=== PATIENT | female | born 1945 | race Caucasian/White ===

== ENCOUNTER 2025-08-14 13:41 | Inpatient (IN) | payer MEDICARE, SELFPAY ==
--- OUTSIDE RECORDS SUMMARY | 2025-08-13 10:15 | XMS_ITS | Encounter Summary ---
Author Organization [facility] Address [address] [place] [address] Care Team Providers Care Front Office Agent Name Role Phone Jorge Vazquez MD Primary Care Provider [phone] Jorge Vazquez MD Unavailable Jorge Vazquez MD Unavailable Reason for Referral * Consult / Treatment (Urgent) - New Request Specialty Diagnoses / Procedures Referred By Jessica t Referred To Contact Domingo Abdullahi MD [address] [place] [id number] Phone: tel: fax: Referral ID Status Reason Start Date Expiration Date V isits Requested Visits Authorized [id number] New Request 08/13/2025 11/06/2026 1 1 Reason for Visit * Reason Comments Altered Mental Status Encounter Details Date Type Department Care Team (Late st Contact Info) Description 08/13/2025 10:15 AM EST - 08/14/2025 11:30 AM EST [facility] [address] [place] [address] Domingo Abdullahi MD [address] [place] [address] Sincere Antonio MD [address] [place] [address] Zoie Walters MD [address] [place] [address] Dementia with behavioral disturbance (CMS-HCC) (Primary Dx); Transient alteration of awareness; Dementia without behavioral disturbance (CMS-HCC) [F03.90] Discharge Disposition: Psychiatric Hospital Social History Tobacco Use Types Packs/Day Years Used Date Smoking Tobacco: Never Assessed Humiliation, Afraid, Rape, and Kick questionnair e Answer Date Recorded Within the last year, have y ou been afraid of your partner or ex-partner? No 08/13/2025 Emotionally Abused Not on file 08/13/2025 Physically Abused Not on file 08/13/2025 Sexually Abused Not on file 08/13/2025 Overall Financial Resource Strain (CARDIA) Answe r Date Recorded How hard is it for you to pa y for the very basics like food, housing, medical care, and heating? Not hard at all 08/13/2025 Hunger Vital Sign Answer Date Recorded Within the past 12 months, y ou worried that your food would run out before you got the money to buy more. Never true 08/13/20 25 Ran Out of Food in the Last Year Not on file 08/13/2025 PRAPARE - Transportation Answer Date Re corded In the past 12 months, has l ack of transportation kept you from medical appointments or from getting medications? No 12/2024 In the past 12 months, has l ack of transportation kept you from meetings, work, or from getting things needed for daily living? No 08/13/2025 Housing Stability Vital Sign Answer Tanvir e Recorded In the last 12 months, was t here a time when you were not able to pay the mortgage or rent on time? No 08/13/2025 Number of Times Moved in the Last Year Not on fi le 08/13/2025 At any time in the past 12 m [facility], were you homeless or living in a [facility] (including now)? No 08/13/2025 [facility] Utilities Answer Date Recorded In the past 12 months has th e electric, gas, oil, or water company threatened to shut off services in your home? No 08/13/2025 Food Insecurity Answer Date Recorded Within the past 12 months, y ou worried that your food would run out before you got the money to buy more. Never true 08/13/20 25 Ran Out of Food in the Last Year Not on file 08/13/2025 Intimate Partner Violence Answer Date R ecorded Emotionally Abused Not on file 08/13/2025 Within the last year, have y ou been afraid of your partner or ex-partner? No 08/13/2025 Physically Abused Not on file 08/13/2025 Sexually Abused Not on file 08/13/2025 Housing Stability Answer Date Recorded Unstable Housing in the Last Year Not on file 08/13/2025 In the last 12 months, was t here a time when you were not able to pay the mortgage or rent on time? No 08/13/2025 [address] of Places Lived in the Last Year Not on f ile 08/13/2025 AUDIT C Answer Date Recorded How often have you had a dri nk containing alcohol, in the past year? 0 08/13/2025 How many standard drinks con taining alcohol have you had on a typical day when you are drinking, in the past year? 0 1 10/13/2024 How often have you had six o r more drinks on one occasion, in the past year? 0 08/13/2025 Comments Unknown Sex and Gender Information Value Date Recorded Sex Assigned at Female 02/12/2021 3:05 PM EDT Legal Sex Female 12:02 AM EDT Gender Identity Female 02/12/2021 3:05 PM EDT Sexual Orientation Not on file documented as of this encounter Last Filed Vital Signs Vital Sign Reading Time Taken Comments Blood Pressure 145/85 08/14/2025 6:19 AM EST Pulse 85 08/14/2025 6:19 AM EST Temperature 36.2 C (97.2 F) 08/14/2025 6:19 AM EST Respiratory Rate 16 08/14/2025 6:19 AM EST Oxygen Saturation 92% 08/14/2025 6:19 AM EST Inhaled Oxygen Concentration - - Weight 46.7 kg (103 lb) 08/13/2025 12:49 PM EST Height 152.4 cm (5') 08/13/2025 12:49 PM EST Body Mass Index 20.12 08/13/2025 12:49 PM EST documented in this encounter Discharge Instructions * Discharge Instructions* Domingo Abdullahi MD - 08/13/2025 1:48 PM EST 1. Alexandra was seen and evaluated in the emergency department today when she became unresponsive andnonverbal. 2. In the emergency department, she was evaluated for a number of potential dangerous causes. Her evaluation included CT scans of her head/brain, as well as blood work, chest x-ray, EKG, urine testing. 3. Overall, there is no evidence of an immediately dangerous life-threatening cause for the episodetoday. 4. Specifically, no evidence of any stroke, no bleeding of the brain, no bruising or swelling of the brain. We do not identify any infection, particularly a urinary infection which could account for her mental status change. There is no evidence of heart attack, no pneumonia. 5. At this time, there does not appear to be a clear definitive medical explanation for the episodetoday. 6. For those undergoing significant life changes, such as moving from one apartment to another, superimposed on cognitive impairment from dementia, symptoms of paranoia, speech loss, confusion and disorientation can occur. It is likely this is what happened this morning. 7. I placed an order for an outpatient follow-up with neurology to further discuss and assess treating dementia. 8. You should receive a phone call in the next 24 to 48 hours about setting up an outpatient appointment/consultation. 9. Please contact the primary care doctor and let them know about the visit to the emergency department. Please arrange for outpatient follow-up and reevaluation. 10. We are always here in the emergency department to help. Please return at anytime for any new, different, dangerous, life-threatening, symptoms or conditions. Thank you. * Attachments The following attachments cannot be sent through Care Everywhere. * Altered Level of Consciousness (LOC) (Trinidadian) documented in this encounter Medications at Time of Discharge aspirin 81 MG EC tablet Take by mouth. 09/23/2006 cholecalciferol (VITAMIN D3) 1,000 unit tablet Take by mouth. 05/07/2008 cyanocobalamin, vitamin B-12, 1,000 mcg TbER Take 1 mg by mouth. 11/07/2019 famotidine (PEPCID) 20 MG tablet 04/28/2021 metFORMIN (GLUCOPHAGE) 500 MG tablet TAKE 2 TABLETS BY MOUTH TWICE A DAY WITH MEALS 04/14/2021 simvastatin (ZOCOR) 10 MG tablet TAKE 1 TABLET BY MOUTH EVERY DAY IN THE EVENING FOR CHOLESTEROL 04/29/2021 VESICARE 10 mg tablet 05/26/2021 documented as of this encounter Progress Notes * Sandy Goss - 08/14/2025 7:59 AM EST Behavioral Health Crisis Consult- Contact Note Patient: Alexandra Styles : 1945 Admit Date: 08/13/2025 Date of Consult: 08/14/2025 Time of Consult: 7:59 AM Narrative: Patient: Alexandra Styles Accepting Facility: [facility] Facility Address: [address] [place] [address] Accepting MD: Dr Solomon Arrival Time: 1 PM arrival Nurse to Nurse Report: they will call ED for RN to RN Other Labs or Needs: none HCP/Guardian (if applicable): none invoked in chart Reason for Section 12: altered mental status Information Given To: secure chat * Sandy Goss - 08/14/2025 6:13 AM EST Behavioral Health Crisis Consult- Contact Note Patient: Alexandra Styles : 1945 Admit Date: 08/13/2025 Date of Consult: 08/14/2025 Time of Consult: 6:13 AM Narrative: Bed Search Inpatient Unit Referral Date Referral Time Began Review Date Began Review Time Accepted Date Accepted Time Decline Date Decline Time Reason If Decline Comment Senior Adult Unit at [facility] ([facility]) 08/13/25 6:43 PM EST [facility] 08/13/25 7:06 PM EST [facility] ([facility]) 08/13/25 7:06 PM EST [facility] Accessible 08/13/25 7:06 PM EST [facility] 08/13/25 7:06 PM EST Facility 08/13/25 7:06 PM EST [facility] 08/13/25 7:06 PM EST [facility]) Accessible 08/13/25 7:06 PM EST [facility] Accessible 08/13/25 7:06 PM EST [facility] 08/13/25 7:07 PM EST [facility] Accessible 08/14/25 6:10 AM EST [facility] 08/14/25 6:13 AM EST [facility] Accessible 08/14/25 6:13 AM EST * Juanjose Robertson - 08/13/2025 7:07 PM EST Bed Search Inpatient Unit Referral Date Referral Time Began Review Date Began Review Time Accepted Date Accepted Time Decline Date Decline Time Reason If Decline Comment [facility] at [facility] ([facility]) 08/13/25 6:43 PM EST [facility] 08/13/25 7:06 PM EST [facility] ([facility]) 08/13/25 7:06 PM EST [facility] Access[facility] 08/13/25 7:06 PM EST [facility] 08/13/25 7:06 PM EST Facility 08/13/25 7:06 PM EST [facility] 08/13/25 7:06 PM EST [facility] ([facility]) Accessible 08/13/25 7:06 PM EST [facility] Accessible 08/13/25 7:06 PM EST [facility] 08/13/25 7:07 PM EST * CUCA Cohn - 08/13/2025 6:31 PM EST Delicia notified * Judy May NP - 08/13/2025 3:46 PM EST Psychiatry acknowledges non-urgent psychiatry consult on Alexandra Styles by medical team (Domingo Abdullahi MD) for purposes of reviewing case and ongoing treatment to provide recommendations for agitation. I personally reviewed relevant portions of the patient's chart including but not limited to: medical course (admission note, progress notes, consultation notes), VS, labs, imaging results and MAR summary. After review of chart and discussion w/ team by phone: -Seroquel 25 mg QHS (for agitation/paranoia) -Seroquel 25 mg BID PRN for agitation -Haldol 2.5 mg IV PRN for severe agitation Discussed recommendations with team by phone. I did not personally evaluate the patient but was available to the primary team to assist in the care of the patient including medical consultative discussion and review, and provided recommendations as above. documented in this encounter Consult Notes * CUCA Cohn - 08/13/2025 6:18 PM ESTAssociated Order(s): BEHAVIORAL HEALTH CRISIS EVALUATION Behavioral Health Crisis Consult - Initial Assessment Patient: Alexandra Styles : 1945 Admit Date: 08/13/2025 Date of Consult: 08/13/2025 Time of Consult: 6:28 PM Consult Requested by: Sincere Antonio MD Reason for Consult: Reason for Consult: altered mental status Chief Complaint Patient presents with Altered Mental Status History of Present Illness: Patient is a 80 y.o. female with past medical and psychiatric history as listed who presented to the hospital on 08/13/2025 for Altered Mental Status. Behavioral Health is consulted for altered mental status. The patient reported that she came to the hospital because she believed people were trying to take her grandchildren away from their parents. During the assessment, the patient was observed with her hands covering her face. When asked why, she stated that she was hiding from ???the bad people?? who she feared might take her or her family away. The patient was unable to answer most assessment questions, and her family provided collateral information to assist with the evaluation. Medical History: has a past medical history of Anxiety, Cataract, Diabetes mellitus, Diverticulitis, GERD (gastroesophageal reflux disease), Osteoporosis, and Short-term memory loss. has a past surgical history that includes Bladder suspension; Hysterectomy; and Colonoscopy. Psychiatric History: History of psychiatric illness?: No History of suicidal ideation?: No History of non-suicidal self injury?: No History of interpersonal aggression?: No History of past MAGDA?: No Treatment History?: No Current Providers?: No Collateral Contact: Yes Home Medications: Prescriptions Prior to Admission[1] Current Medications: Scheduled Medications[2] Current PRN: PRN Medications[3] Allergies: Ciprofloxacin and Sulfa (sulfonamide antibiotics) Substance Use History Alcohol: Substance and Sexual Activity Alcohol Use None In the past 12 months,have you had 5 or more drinks(men)/4 or more drinks (women) containing alcohol in one day?: No Tobacco: has no history on file for tobacco use. Other: has no history on file for drug use. Addiction/Substance Use Substances last used: Never used Prescription Medications: In the past 12 months,have you used any prescription medications just for the feeling, more than prescribed or that were no prescribed for you?: No Substances: In the past 12 months, have you used any drugs?: No Medical and Psychiatric Consequences: Medical/Psychiatric Consequences:: None Psychosocial Consequences: Psychosocial consequences:: Mental health Social History: family support Socioeconomic History Marital status: Single Employment Status: Retired Type of Residence: Private residence Children?: Yes Legal Issues (*Add to Legal History Navigator): Denies History: History [place] status: No Personal History: History of trauma/significant life events/[place]?: No has no history on file for sexual activity. Family History: Family History[4] Family history of psychiatric illness?: No Family history of MAGDA?: No Family history of suicidal ideation, attempt or completed suicide?: No Physical Exam: Patient Vitals for the past 24 hrs: BP Temp Temp src Pulse Resp SpO2 Height Weight 08/13/25 1711 (!) 142/90 97.1 ??F (36.2 ??C) Temporal 83 18 96 % -- -- 08/13/25 1501 128/89 -- -- (!) 94 -- 97 % -- -- 08/13/25 1316 (!) 119/101 -- -- 77 -- 98 % -- -- 08/13/25 1301 (!) 154/95 -- -- 75 -- 97 % -- -- 08/13/25 1252 -- 97 ??F (36.1 ??C) Oral -- 18 -- -- -- 08/13/25 1249 -- -- -- -- -- -- 1.524 m (5') 46.7 kg (103 lb) 08/13/25 1246 (!) 163/141 -- -- 74 -- 98 % -- -- 08/13/25 1231 (!) 135/108 -- -- 76 -- 99 % -- -- 08/13/25 1216 (!) 128/100 -- -- 73 -- 98 % -- -- 08/13/25 1201 (!) 150/72 -- -- 65 -- -- -- -- 08/13/25 1146 (!) 148/91 -- -- 60 -- 98 % -- -- 08/13/25 1131 139/88 -- -- 62 -- 99 % -- -- 08/13/25 1115 (!) 144/80 -- -- 60 -- 99 % -- -- 08/13/25 1110 (!) 162/76 -- -- 64 -- 99 % -- -- 08/13/25 1031 (!) 142/94 -- -- 62 -- 95 % -- -- 08/13/25 1025 (!) 133/116 -- -- 63 16 98 % -- -- Mental Status Exam: Mental Status Exam General Appearance: Appears stated age and appropriately dressed. Underweight and moderate distress. Level of Consciousness: Alert. Orientation: Oriented to person. Disoriented to place and situation. Attitude and Behavior: Friendly. Eye Contact: Eye contact avoidant. Psychomotor Activity: Normal. Speech: Normal rate, rhythm, coherence, articulation and prosody. Soft. Language: Normal. Mood: Patient description of mood: Sad and scared. Affect: Depressed and irritable. Thought Process and Associations: Circumstantial and disorganized. Thought Content: Unable to assess. Attention Span: Distracted. Memory: Unable to assess. Fund of Knowledge: Decreased knowledge of recent events. Cognition: Unable to assess. Insight: Poor. Judgment: Poor. Labs, Imaging & Other Studies: Laboratory: Recent lab results have been reviewed and are notable for chart review. Results for orders placed or performed during the hospital encounter of 08/13/25 (from the past 24 hours) POCT Glucose Result Value Ref Range Glucose, POC 203 (H) 70 - 118 mg/dL Comprehensive Metabolic Panel Result Value Ref Range Sodium 137 135 - 146 mmol/L Potassium 4.5 3.4 - 5.2 mmol/L Chloride 102 98 - 110 mmol/L Total CO2/Bicarbonate 22 (L) 24 - 32 mmol/L Anion Gap 13 2 - 15 mmol/L Anion Gap BUN 26 (H) 7 - 24 mg/dL Creatinine, Blood 0.92 0.50 - 1.10 mg/dL Glucose, Blood 207 (H) 70 - 118 mg/dL Calcium 10.1 8.5 - 10.5 mg/dL Total Protein 7.9 6.0 - 8.2 g/dL Albumin, Blood 4.2 3.4 - 5.2 g/dL Globulin Result 3.7 2.0 - 4.0 g/dL AST (SGOT) 20 11 - 40 U/L ALT (SGPT) 23 4 - 35 U/L Alkaline Phosphatase 57 30 - 115 U/L Total Bilirubin 0.3 0.0 - 1.2 mg/dL Estimated GFR (MDRD) 58 (L) >=60 mL/min/BSA Type and Screen Result Value Ref Range ABO and Rh O POS Antibody Screen NEG Expiration Date 08/16/2025 23:59 CBC and Differential Result Value Ref Range WBC 7.55 4.00 - 11.00 K/uL RBC 4.39 4.10 - 5.10 M/uL Hemoglobin 13.7 12.0 - 15.3 g/dL Hematocrit 40.1 36.0 - 45.0 % MCV 91 80 - 96 fL RDW 13.2 11.6 - 14.6 % Platelet Count 329 150 - 450 K/uL Neutrophil 65.7 % Lymphocyte 19.6 % Monocyte 10.5 % Eosinophil 3.4 % Basophil 0.5 % Immature Granulocyte ([place], Myelo, Promyelocyte) 0.3 % Absolute Neutrophil Count 4.96 1.50 - 7.70 K/uL Absolute Immature Granulocyte ([place], Myelo, Promyelocyte) 0.02 0.00 - 0.09 K/uL Absolute Lymphocyte Count 1.48 1.20 - 3.50 K/uL Absolute Monocyte Count 0.79 0.00 - 1.00 K/uL Absolute Eosinophil Count 0.26 0.00 - 0.40 K/uL Absolute Basophil Count 0.04 0.00 - 0.20 K/uL Differential Performed Auto Diff Reported Blue Top Result Value Ref Range Blue Top Tube Received Gold Top Result Value Ref Range Gold Top Tube Received Mint Green Top Result Value Ref Range PST Tube Received Troponin Result Value Ref Range Troponin I <0.01 <=0.08 ng/mL Lactic Acid with 3 Hour Reflex Result Value Ref Range Lactic Acid 2.4 (H) 0.5 - 2.0 mmol/L PT-INR Result Value Ref Range INR 1.1 <1.3 Toxicology Screen, Plasma Result Value Ref Range Alcohol <10 <10 mg/dL Acetaminophen Result,Blood <3 <=30 ug/mL Salicylate Level, Blood <5 <30 mg/dL Benzodiazepines Screen,Blood Negative Negative Tricyclics Screen Negative Negative BB Retype Result Value Ref Range BB RETYPE Received Urinalysis with Reflex to Urine Culture Specimen: Urine, Mid-stream Collection Result Value Ref Range Color, Urine Yellow Colorless, Straw, Yellow Clarity, Urine Clear Clear pH, Urine 6.5 5.0 - 7.0 Protein, Urine Negative Negative Glucose, Urine Negative Negative Ketone, Urine Negative Negative Blood, Urine Negative Negative Leukocyte Esterase, Urine Trace (A) Negative Nitrite, Urine Negative Negative Specific [place], Urine >1.050 (H) 1.001 - 1.035 White Blood Cells, Urine <3 <=4 /hpf Red Blood Cells, Urine 1 <=2 /hpf Bacteria Urine Negative Negative Hyaline Cast <10 <=10 /lpf Drug Screen, Urine Result Value Ref Range 6-Aceytlmorphine Screen, Urine Negative Negative Amphetamines Screen, Urine Negative Negative Barbiturates Screen, Urine Negative Negative Benzodiazepine Screen, Urine Negative Negative Buprenorphine Screen, Urine Negative Negative Cannabinoids Screen, Urine Negative Negative Cocaine Metabolite Screen, Urine Negative Negative Ethanol Screen, Urine Negative Negative Fentanyl Screen, Urine Negative Negative Methadone Screen, Urine Negative Negative Opiates Screen, Urine Negative Negative Oxycodone Screen, Urine Negative Negative Tramadol Screen, Urine Negative Negative Creatinine, Carlos Urine 39.0 >=15 mg/dL Urinalysis Chemistries Result Value Ref Range Color, Urine Colorless Colorless, Light yellow, Yellow Clarity, Urine Clear Clear pH, Urine 6.5 5.0 - 9.0 Glucose, Urine 30 mg/dL (A) Negative Protein, Urine Negative Negative, 10 mg/dL, 20 mg/dL Ketones, Urine Negative Negative Blood, Urine Negative Negative Nitrite Negative Negative Leukocyte Esterase, Urine Negative Negative, Trace Specific [place], Urine >1.050 (H) 1.001 - 1.035 Troponin Result Value Ref Range Troponin I 0.02 <=0.08 ng/mL EKG: No studies were reviewed. C-SSRS Screener and SAFE-T: [place] Suicide Severity Rating Scale (C-SSRS) Screener 1) In the past month, have you wished you were or wished you could go to sleep and not wake up?: No 2) In the past month, have you actually had any thoughts of killing yourself?: No 6a.) Have you ever done anything, started to do anything, or prepared to do anything to end your life?: No C-SSRS Screener Risk Level: No Risk Indicated History of Psychiatric Diagnosis:: Personality disorder, Psychotic disorder Presenting Symptoms: Agitation, Impulsivity, Psychosis Family History: None Precipitants/ Stressors/ Interpersonal: Social isolation Change in Treatment: Not receiving treatment Access to lethal methods: Ask specifically about presence or absence of a firearm in the home or ease of accessing: No Step 2: Identify Protective Factors (Protective factors may not counteract significant acute suicide risk factors) Internal Protective Factors: Unable to assess External Protective Factors: Supportive social network/therapeutic relationships Management of Suicide Risk: Because the risks of treatment in the community outweighs its benefits, the patient will be furtherassessed for psychiatric inpatient level of care Assessment: Patient is an 80-year-old female brought to the emergency department by her family due to concerns about altered mental status. Upon evaluation, the patient reported that she came to the hospital because she believed people were trying to take her grandchildren away from their parents. During the assessment, the patient was observed with her hands covering her face. When asked why, she stated that she was hiding from ???thebad people?? who she feared might take her or her family away. The patient was unable to answer most assessment questions, and her family provided collateral information to assist with the evaluation. The family reported that earlier in the day, they had picked her up from her condo to visit an assisted living facility at [facility] to look at two units. They explained that this plan was made because the patient has been increasingly disoriented and showing signs that she may no longer be able to safely live alone. The family also stated that the [facility] management had reached out expressing concern about her wellbeing. They described her as ???not herself,?? increasingly forgetful, andunable to care for herself properly. They noted that when they picked her up today, she appeared ???very out of it,?? which prompted them to bring her to the hospital. According to the family, the patient???s memory issues began approximately three to four months agoand have become more noticeable over time. They are unsure how long this has been progressing but now fear she cannot live independently. They are uncertain if [facility] remains an appropriateplacement option until her condition is fully evaluated. The patient???s son reported that she was seen by her primary care provider two weeks ago and that earlier today, the PCP advised that the patient should not be discharged until a plan of care is established. The family expressed they are supportive of an inpatient admission if it is deemed the best course of action. The family denied any family history of mental illness or substance use. The patient has no currentor past psychiatric treatment, has never been psychiatrically hospitalized, and is not taking any psychiatric medications. There is no history of trauma, suicidal ideation, homicidal ideation, halluci nations, or substance use. There are also no weapons in the home. The family reported that the patient has had difficulty sleeping, decreased appetite resulting in noticeable weight loss, poor concentration, and fluctuating energy levels. Her mood has been described as anxious, agitated, and at times paranoid. Recommendations: At this time, the patient is being recommended for geriatric psychiatric admissionfor further evaluation and stabilization due to concerns about cognitive decline, paranoia, and inability to safely care for herself. Intervention and Stabilization Services Requested: none Section 12 (legal) status and level of safety precautions: Pt meets criteria for Section 12 at this time. She has a substantial risk of injury to self due to impaired judgment as evidenced by cognitive decline, paranoia, and inability to safely care for herself. Patient location-specific ORDERS including patient observation status: ED - May not leave the ED AMA; Transfer to psychiatric hospital on Section 12a when bed found; ====Order/continue SAFETY WATCH. Patient may be continued on/downgraded to 2:1 sitter (NOT for suicidal/homicidal or self harm patients)==== Permissions: The patient is deemed by psychiatry to be allowed to have the following permissions while on SI/HI/self harm precautions (inpatient) or while boarding in ED: room phone/call thapa, reading material/paper, clothing items (after review by staff for safety), outside food (after review by staff for safety), comfort items (eg: blanket, jayme bears), and visitors (after review by staff for safety) The implementation of such permissions is at the discretion of nursing, who may terminate such permissions if used inappropriately. Disposition Recommendation: Inpatient Level of Care Patient meets criteria for opioid use disorder (OUD): No Behavioral Health Diagnosis: F03.918 - Dementia With Behavioral Disturbance Duration: Time Spent (min): 80 Discussed with Photoengraving Supervisor: Yes, Photoengraving Supervisor Name: Cleve Infante Discussed with Medical Team: Yes . Domingo Abdullahi MD Signed by: CUCA Cohn [1] (Not in a hospital admission) [2] [START ON 08/14/2025] aspirin, 81 mg, Oral, Daily [START ON 08/14/2025] glipiZIDE ER, 2.5 mg, Oral, Daily with breakfast lisinopriL, 20 mg, Oral, Daily metFORMIN, 500 mg, Oral, BID with meals QUEtiapine, 25 mg, Oral, QHS [3] haloperidol lactate QUEtiapine [4] No family history on file. documented in this encounter ED Notes * Chanel Torres RN - 08/14/2025 12:19 PM EST Pt accepted to [place] in [facility]. Pt son aware. Pt sleeping most of morning. Would not open eye and interact with any staff or son. No meds given or breakfast given this morning. Pt left department via BLS ambulance. Report given to Vanessa rosales at facility * Sincere Antonio MD - 08/13/2025 10:15 AM EST 08/13/2025 1800--I have assumed care of this patient who presents with cognitive decline and a diagnosis of vascular dementia with increasing behavioral abnormalities. The patient's family is attempting to her to get her into a memory unit at the nearby [facility]. They were reportedly driving by the [facility] today and the patient became transiently unresponsive and was refusing to talk. There is no reported seizure activity or incontinence. In the emerged primary she is awake and was initially not responding to stimulus but later was more interactive. She has undergone blood and urine testing and is awaiting [facility] behavioral health evaluation. The [facility] behavioral health clinician from [place] has made medication recommendations. Results for orders placed or performed during the hospital encounter of 08/13/25 POCT Glucose Collection Time: 08/13/25 10:16 AM Result Value Ref Range Glucose, POC 203 (H) 70 - 118 mg/dL Comprehensive Metabolic Panel Collection Time: 08/13/25 10:23 AM Result Value Ref Range Sodium 137 135 - 146 mmol/L Potassium 4.5 3.4 - 5.2 mmol/L Chloride 102 98 - 110 mmol/L Total CO2/Bicarbonate 22 (L) 24 - 32 mmol/L Anion Gap 13 2 - 15 mmol/L Anion Gap BUN 26 (H) 7 - 24 mg/dL Creatinine, Blood 0.92 0.50 - 1.10 mg/dL Glucose, Blood 207 (H) 70 - 118 mg/dL Calcium 10.1 8.5 - 10.5 mg/dL Total Protein 7.9 6.0 - 8.2 g/dL Albumin, Blood 4.2 3.4 - 5.2 g/dL Globulin Result 3.7 2.0 - 4.0 g/dL AST (SGOT) 20 11 - 40 U/L ALT (SGPT) 23 4 - 35 U/L Alkaline Phosphatase 57 30 - 115 U/L Total Bilirubin 0.3 0.0 - 1.2 mg/dL Estimated GFR (MDRD) 58 (L) >=60 mL/min/BSA CBC and Differential Collection Time: 08/13/25 10:23 AM Result Value Ref Range WBC 7.55 4.00 - 11.00 K/uL RBC 4.39 4.10 - 5.10 M/uL Hemoglobin 13.7 12.0 - 15.3 g/dL Hematocrit 40.1 36.0 - 45.0 % MCV 91 80 - 96 fL RDW 13.2 11.6 - 14.6 % Platelet Count 329 150 - 450 K/uL Neutrophil 65.7 % Lymphocyte 19.6 % Monocyte 10.5 % Eosinophil 3.4 % Basophil 0.5 % Immature Granulocyte ([place], Myelo, Promyelocyte) 0.3 % Absolute Neutrophil Count 4.96 1.50 - 7.70 K/uL Absolute Immature Granulocyte ([place], Myelo, Promyelocyte) 0.02 0.00 - 0.09 K/uL Absolute Lymphocyte Count 1.48 1.20 - 3.50 K/uL Absolute Monocyte Count 0.79 0.00 - 1.00 K/uL Absolute Eosinophil Count 0.26 0.00 - 0.40 K/uL Absolute Basophil Count 0.04 0.00 - 0.20 K/uL Differential Performed Auto Diff Reported Blue Top Collection Time: 08/13/25 10:23 AM Result Value Ref Range Blue Top Tube Received Gold Top Collection Time: 08/13/25 10:23 AM Result Value Ref Range Gold Top Tube Received Mint Green Top Collection Time: 08/13/25 10:23 AM Result Value Ref Range PST Tube Received Troponin Collection Time: 08/13/25 10:23 AM Result Value Ref Range Troponin I <0.01 <=0.08 ng/mL Lactic Acid with 3 Hour Reflex Collection Time: 08/13/25 10:23 AM Result Value Ref Range Lactic Acid 2.4 (H) 0.5 - 2.0 mmol/L PT-INR Collection Time: 08/13/25 10:23 AM Result Value Ref Range INR 1.1 <1.3 Toxicology Screen, Plasma Collection Time: 08/13/25 10:23 AM Result Value Ref Range Alcohol <10 <10 mg/dL Acetaminophen Result,Blood <3 <=30 ug/mL Salicylate Level, Blood <5 <30 mg/dL Benzodiazepines Screen,Blood Negative Negative Tricyclics Screen Negative Negative Type and Screen Collection Time: 08/13/25 10:23 AM Result Value Ref Range ABO and Rh O POS Antibody Screen NEG TS Expiration Date 08/16/2025 23:59 ECG 12 lead Collection Time: 08/13/25 10:23 AM Result Value Ref Range Ventricular Heart Rate 58 BPM Atrial Heart Rate 58 BPM NJ Interval 174 ms QRSD Interval 140 ms QT Interval 480 ms QTC Interval 471 ms P Erie 4 degrees R Erie -45 degrees T Wave Erie 48 degrees BB Retype Collection Time: 08/13/25 10:35 AM Result Value Ref Range BB RETYPE Received Urinalysis with Reflex to Urine Culture Collection Time: 08/13/25 11:45 AM Specimen: Urine, Mid-stream Collection Result Value Ref Range Color, Urine Yellow Colorless, Straw, Yellow Clarity, Urine Clear Clear pH, Urine 6.5 5.0 - 7.0 Protein, Urine Negative Negative Glucose, Urine Negative Negative Ketone, Urine Negative Negative Blood, Urine Negative Negative Leukocyte Esterase, Urine Trace (A) Negative Nitrite, Urine Negative Negative Specific [place], Urine >1.050 (H) 1.001 - 1.035 White Blood Cells, Urine <3 <=4 /hpf Red Blood Cells, Urine 1 <=2 /hpf Bacteria Urine Negative Negative Hyaline Cast <10 <=10 /lpf Drug Screen, Urine Collection Time: 08/13/25 11:45 AM Result Value Ref Range 6-Aceytlmorphine Screen, Urine Negative Negative Amphetamines Screen, Urine Negative Negative Barbiturates Screen, Urine Negative Negative Benzodiazepine Screen, Urine Negative Negative Buprenorphine Screen, Urine Negative Negative Cannabinoids Screen, Urine Negative Negative Cocaine Metabolite Screen, Urine Negative Negative Ethanol Screen, Urine Negative Negative Fentanyl Screen, Urine Negative Negative Methadone Screen, Urine Negative Negative Opiates Screen, Urine Negative Negative Oxycodone Screen, Urine Negative Negative Tramadol Screen, Urine Negative Negative Creatinine, Carlos Urine 39.0 >=15 mg/dL Urinalysis Chemistries Collection Time: 08/13/25 11:45 AM Result Value Ref Range Color, Urine Colorless Colorless, Light yellow, Yellow Clarity, Urine Clear Clear pH, Urine 6.5 5.0 - 9.0 Glucose, Urine 30 mg/dL (A) Negative Protein, Urine Negative Negative, 10 mg/dL, 20 mg/dL Ketones, Urine Negative Negative Blood, Urine Negative Negative Nitrite Negative Negative Leukocyte Esterase, Urine Negative Negative, Trace Specific [place], Urine >1.050 (H) 1.001 - 1.035 Troponin Collection Time: 08/13/25 12:49 PM Result Value Ref Range Troponin I 0.02 <=0.08 ng/mL ECG 12 lead Result Date: 08/13/2025 Sinus bradycardia with occasional premature ventricular complexes Left axis deviation Left bundle branch block Abnormal ECG When compared with ECG of 13-Aug-2025 10:22, (Unconfirmed) No significant change was found Confirmed by Pola Schultz ([id number]) on 08/13/2025 12:55:[address] Angiogram Head Neck Code Stroke : Arteriogram Result Date: 08/13/2025 Reported dictated by Hay Jasso MD, Diagnostic Maintenance Data Analyst. EXAM DESCRIPTION: CTA head and neck TECHNIQUE: Arterial phase CTA head and neck with immediate delayed imaging. Post processed images can include coronal and sagittal, curved and volume rendered reformatted images. CT perfusionof the brain with IV contrast Extra Series: None. Contrast administered: Intravenous: 120 mL IOHEXOL 350 MG IODINE/ML INTRAVENOUS SOLUTION. COMPARISON: CT HEAD CODE STROKE WO CONTRAST, ACC: [id number], dated 2025-08-13 10:52:06 INDICATION: Code stroke FINDINGS: CT perfusion: No core. No areas of T-max greater than 6 seconds. CTA NECK: Right Carotid system: The right common, internal, and externalcarotid arteries are patent. Left Carotid system: The left common, internal, and external carotid arteries are patent. Right Vertebral artery: The right vertebral artery is patent. Left Vertebral artery: Left vertebral artery is dominant with minimal narrowing in the left mid V2 due to uncovertebral joint hypertrophy. CTA HEAD: ANTERIOR CIRCULATION Trace calcified plaque in the bilateral carotid siphons. Bilateral MCAs are patent. 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 Hypoplastic right A1. The anterior communicating artery complex is present. POSTERIOR CIRCULATION Minimal stenosis dominant left V4 due to calcified plaque. Vertebral arteries otherwise unremarkable. Slightly tortuous basilar artery. Superior cerebellar arteries unremarkable. The posterior communicating artery complex is present. VENOUS STRUCTURES The major venous structures enhance normally. SOFT TISSUES: The visualized portions of the lung apices are unremarkable. Normal appearance of mediastinal structures. H eterogeneous thyroid gland with multiple nodules, the largest of which is on the right side measuring up to 1.8 cm. No lymphadenopathy. No acute osseous abnormalities. Moderate central canal stenosisC3-C4 to disc osteophyte complex. CTA HEAD: 1. No evidence of vessel occlusion or dissection. CTA NECK: 1. No evidence of vessel occlusion or dissection. 2. Right-sided thyroid nodule measuring up to 1.8 cm. Recommend ultrasound, dueto size criteria greater than 1.5 cm for further characterization if not done recently, as clinically indicated.. CAROTID STENOSIS REFERENCE - distal internal carotid artery diameter as the denominator for stenosis measurement: MILD = <50% stenosis. MODERATE = 50-69% stenosis. SEVERE = 70-89% stenosis. HAIRLINE/CRITICAL = 90-99% stenosis. OCCLUDED = 100% stenosis. I have reviewed all images of this examination and edited the above dictation. CT Head Code Stroke Without Contrast Result Date: 08/13/2025 EXAM DESCRIPTION: CT SCAN OF THE HEAD WITHOUT INTRAVENOUS CONTRAST TECHNIQUE: Head CT was performedwithout intravenous contrast per standard departmental protocol.Dose lowering technique(s) such as automated exposure control, iterative reconstruction, and mA and/or KV adjustment for patient size was utilized for this exam. COMPARISON: None INDICATION: stroke symptoms FINDINGS: BRAIN/EXTRA-AXIAL:There is no intracranial hemorrhage. There are no extra-axial fluid collections. No areas of loss of lindsey white matter differentiation. Patchy periventricular and subcortical white matter changes nonspecific and most likely representing sequela of small-vessel disease. Patchy subcortical hypodensities in the subcortical white matter of the superior frontal gyri bilaterally and bilateral middle frontal gyri likely representing dilated perivascular spaces given symmetric appearance. There is no mass, mass effect or midline shift. The ventricles, sulci and cisterns are proportional and symmetric. BONES AND SOFT TISSUES: The skull is unremarkable. Visualized orbits are grossly unremarkable. Theparanasal sinuses are normally pneumatized. Mastoid air cells and middle ears are normally pneumatized. 1. No acute intracranial abnormality. 2. Patchy periventricular and subcortical white matter changes nonspecific and most likely representing sequela of small- vessel disease. Discussed with Dr. Abdullahi at 10:59 a.m. August 13, 2025. XR Chest 1 Vw Portable Result Date: 08/13/2025 EXAM DESCRIPTION: XR CHEST 1 VW PORTABLE TECHNIQUE: XR CHEST 1 VW PORTABLE COMPARISON: CT ABDOMEN PELVIS W CONTRAST, ACC: [id number], dated 2024-08-04 14:52:50; CT ABDOMEN AND PELVIS W CONTRAST, ACC:[id number], dated 2021-06-25 08:05:35 INDICATION: AMS FINDINGS: LINES/TUBES/DEVICES: None. LUNGS/PLEURA: No focal consolidation. No pleural effusion. No pneumothorax. HEART AND MEDIASTINUM: Normal cardiomediastinal silhouette. OSSEOUS/OTHER: Degenerative changes of the spine. No acute cardiopulmonary abnormality. The [facility] behavioral health clinician is interviewed the patient and feels that she would benefit from psychiatric admission. Patient cannot leave and meet section 12 criteria because of risk of self-harm, inability to care for self, cognitive decline, and paranoia. Ongoing inpatient psychiatric bed search will be undertaken. 2240--I will sign the patient over to the evening provider pending ongoing inpatient psychiatric bed search. Dx: Dementia with behavioral disturbance, paranoia, inability to care for self. Sincere Antonio MD 08/13/252241 * Zoie Walters MD - 08/13/2025 10:15 AM EST Assumed care of patient due to change of shift with hx dementia here with agitation and behavioral disturbance. Lives at home alone. Family checked in on her and were concerned. Medical workup unremarkable. Inpatient bed search. SW. Home meds ordered. Zoie Walters MD 08/13/252301 documented in this encounter Plan of Treatment Scheduled Referrals Name Type Priority Associated Diagnoses Order Schedule Ambulatory Referral to Neurology Outpatient Referral Urgent Expected: 08/13/2025 (Approximate), Expires: 08/13/2026 documented as of this encounter Procedures Procedure Name Priority Date/Time Associated Diagnosis Comments TROPONIN (ALL) STAT 08/13/2025 12:49 PM EST URINE CHEMISTRY STAT 08/13/2025 11:45 AM EST DRUG SCREEN, URINE STAT 08/13/2025 11 :45 AM EST URINALYSIS WITH URINE CULTURE REFLEX STAT 08/13/2025 11:[address] ANGIOGRAM HEAD NECK CODE STROKE STAT 08/13/2025 10:[address] HEAD CODE STROKE WO CONTRAST STAT 08/13/2025 10:53 AM EST XR PORTABLE CHEST 1 VW STAT 10:46 AM EST BB RETYPE STAT 08/13/2025 10:35 AM EST ECG 12-LEAD STAT 08/13/2025 10:23 AM EST TROPONIN (ALL) Routine 08/13/2025 10:23 AM EST LACTIC ACID WITH REFLEX Routine 08/13/2025 10:23 AM EST CBC AND DIFFERENTIAL STAT 08/13/2025 10:23 AM EST TOXICOLOGY SCREEN, BLOOD STAT 08/13/2025 10:23 AM EST YELLOW TOP STAT 08/13/2025 10:23 AM EST MINT GREEN TOP STAT 08/13/2025 10:23 AM EST LIGHT BLUE TOP STAT 08/13/2025 10:23 AM EST RAINBOW DRAW STAT 08/13/2025 10:23 AM EST RAINBOW DRAW STAT 08/13/2025 10:23 AM EST PROTIME-INR Routine 08/13/2025 10:23 AM EST CBC AND DIFFERENTIAL STAT 08/13/2025 10:23 AM EST TYPE AND SCREEN STAT 08/13/2025 10:23 AM EST COMPREHENSIVE METABOLIC PANEL STAT 08/13/2025 10:23 AM EST POCI GLUCOSE Routine 08/13/2025 10:16 AM EST documented in this encounter Results * Troponin (08/13/2025 12:49 PM EST) Pathologist [facility] [place] Troponin I 0.02 <=0.08 ng/mL 08/13/2025 1:17 PM EST [facility] Blood PERIPHERAL BLOOD SPECIMEN / Unknown Venipuncture / Unknown 08/13/2025 12:49 PM EST 08/13/2025 12:54 PM EST Mery Pena MD LAB BLOOD ORDERABLES Final Result [place] [address] * (ABNORMAL) Urinalysis Chemistries (08/13/2025 11:45 AM EST) Pathologist [facility] [place] Color, Urine Colorless Colorless, Light yellow, Yellow 08/13/2025 11:52 AM EST [facility] Clarity, Urine Clear Clear 08/13/2025 11:52 AM EST [facility] pH, Urine 6.5 5.0 - 9.0 08/13/2025 11:52 AM EST [facility] Glucose, Urine 30 mg/dL(A) Negative 08/13/2025 11:52 AM EST [facility] Protein, Urine Negative Negative, 10 mg/dL, 20 mg/dL 08/13/2025 11:52 AM EST [facility] Ketones, Urine Negative Negative 08/13/2025 11:52 AM EST [facility] Blood, Urine Negative Negative 08/13/2025 11:52 AM EST [facility] Nitrite Negative Negative 08/13/2025 11:52 AM EST [facility] Leukocyte Esterase, Urine Negative Negative, Trace 08/13/2025 11:52 AM EST [facility] Specific [place], Urine >1.050(H) 1.001 - 1.035 08/13/2025 11:52 AM EST [facility] Urine MID-STREAM URINE SPECIMEN / Unknown Collection / Unknown 08/13/2025 11:45 AM EST 08/13/2025 11:46 AM EST us Domingo Abdullahi MD URINE ORDERABLES Final Result [place] [address] * Drug Screen, Urine (08/13/2025 11:45 AM EST) 6-Aceytlmorphine Screen, Urine Negative Negative 08/13/2025 3:06 PM [facility] Comment:Add on order [id number] Opiates and Oxycodone, Urine, Confirmation, if confirmation desired. Amphetamines Screen, Urine Negative Negative 08/13/2025 3:06 PM [facility] Comment: Screen for Amphetamine, Metamphetamine or other Amphetamine-like compounds. Add-on order [id number] Amphetamine, Urine, Confirmation if confirmation desired. Barbiturates Screen, Urine Negative Negative 08/13/2025 3:06 PM [facility] Comment:Add-on order [id number] Barbiturate, Urine, Confirmation if confirmation desired. Benzodiazepine Screen, Urine Negative Negative 08/13/2025 3:06 PM [facility] Comment: Add-on order [id number] Benzodiazepine, Urine, Confirmation if confirmation desired. Buprenorphine Screen, Urine Negative Negative 08/13/2025 3:06 PM [facility] Comment:Add-on order [id number] Buprenorphine, Urine, Confirmation if confirmation desired. Cannabinoids Screen, Urine Negative Negative 08/13/2025 3:06 PM [facility] Comment:Add-on order [id number] Cannabinoids, Urine, if confirmation desired. Cocaine Metabolite Screen, Urine Negative Negative 08/13/2025 3:06 PM [facility] Comment:Add-on order [id number] Cocaine, Urine, Confirmation if confirmation desired. Ethanol Screen, Urine Negative Negative 08/13/2025 3:06 PM [facility] Fentanyl Screen, Urine Negative Negative 08/13/2025 3:06 PM [facility] Comment:Add-on order [id number] Fentanyl Confirmation, Urine, if confirmation desired. Methadone Screen, Urine Negative Negative 08/13/2025 3:06 PM [facility] Comment:Add order [id number] Me thadone, Urine, Confirmation if confirmation desired. Opiates Screen, Urine Negative Negative 08/13/2025 3:06 PM [facility] Comment: Screen for Morphine, Codeine, Hyrdocodone, Hydromorphone, or other Morphine- related opiates. Add on order [id number] Opiates and Oxycodone, Urine, Confirmation if confirmation desired. Oxycodone Screen, Urine Negative Negative 08/13/2025 3:06 PM [facility] Comment:Add-on order [id number] Opiates and Oxycodone, Urine, Confirmation if confirmation desired. Tramadol Screen, Urine Negative Negative 08/13/2025 3:06 PM [facility] Comment:Add-on order [id number] Tramadol Confirmation, Urine, if confirmation desired. Creatinine, Carlos Urine 39.0 >=15 mg/dL 08/13/2025 3:06 PM [facility] Urine URINE SPECIMEN / Unknown Collection / Unknown 08/13/2025 11:45 AM [facility] 08/13/2025 11:46 AM [facility] - 08/13/2025 3:06 PM [facility] These tests are for screening purposes only and should only be used for medical purposes. The cutoff concentrations for determining a positive result are as follows: 6-Acetylmorphine 10 ng/mL 6-acetylmorphine Amphetamines 1000 ng/mL d-methamphetamine Barbiturates 200 ng/mL secobarbital Benzodiazepines 200 ng/mL oxazepam Buprenorphine 5 ng/mL buprenorphine Cannabinoids 50 ng/mL 57-gvt-vesii 3-OOL-4-carboxylic acid Cocaine 300 ng/mL benzoylecgonine Ethanol 20 mg/dL ethanol Fentanyl 1 ng/mL fentanyl Methadone 300 ng/mL methadone Opiates 300 ng/mL morphine Oxycodone 100 ng/mL oxycodone Tramadol 200 ng/mL tramadol False negative and false positive results may occur due to cross-reactivity, patient medications or sample adulteration. If the validity of these results is uncertain, confirmatory testing can be done upon specific request. us Mery Pena MD URINE ORDERABLES Final Resu lt [address] [address] * (ABNORMAL) Urinalysis with Reflex to Urine Culture (08/13/2025 11:45 AM EST) Color, Urine Yellow Colorless, Straw, Yellow 08/13/2025 3:29 PM [facility] Clarity, Urine Clear Clear 08/13/2025 3:29 PM [facility] pH, Urine 6.5 5.0 - 7.0 08/13/2025 3:29 PM [facility] Protein, Urine Negative Negative 08/13/2025 3:29 PM [facility] Glucose, Urine Negative Negative 08/13/2025 3:29 PM [facility] Ketone, Urine Negative Negative 08/13/2025 3:29 PM [facility] Blood, Urine Negative Negative 08/13/2025 3:29 PM [facility] Leukocyte Esterase, Urine Trace(A) Negative 08/13/2025 3:29 PM [facility] Nitrite, Urine Negative Negative 08/13/2025 3:29 PM [facility] Specific [place], Urine >1.050(H) 1.001 - 1.035 08/13/2025 3:29 PM [facility] White Blood Cells, Urine <3 <=4 /hpf 08/13/2025 3:29 PM [facility] Red Blood Cells, Urine 1 <=2 /hpf 08/13/2025 3:29 PM [facility] Bacteria Urine Negative Negative 08/13/2025 3:29 PM [facility] Hyaline Cast <10 <=10 /lpf 08/13/2025 3:29 PM [facility] Urine MID-STREAM URINE SPECIMEN / Unknown Collection / Unknown 08/13/2025 11:45 AM EST 08/13/2025 11:46 AM EST us Domingo Abdullahi MD URINE ORDERABLES Final Result [place] [id number] * CT Angiogram Head Neck Code Stroke : Arteriogram (08/13/2025 10:58 AM EST) Anatomical Region Laterality Modality Head Computed Tomogra phy 08/13/2025 11:4 5 AM EST Impressions 08/13/2025 11:42 AM EST CTA HEAD: 1. No evidence of vessel occlusion or dissection. CTA NECK: 1. No evidence of vessel occlusion or dissection. 2. Right-sided thyroid nodule measuring up to 1.8 cm. Recommend ultrasound, due to size criteria greater than 1.5 cm for further characterization if not done recently, as clinically indicated.. CAROTID STENOSIS REFERENCE - distal internal carotid artery diameter as the denominator for stenosis measurement: MILD = <50% stenosis. MODERATE = 50-69% stenosis. SEVERE = 70-89% stenosis. HAIRLINE/CRITICAL = 90-99% stenosis. OCCLUDED = 100% stenosis. I have reviewed all images of this examination and edited the above dictation. Narrative 08/13/2025 11:42 AM EST Reported dictated by Hay Jasso MD, Diagnostic Maintenance Data Analyst. EXAM DESCRIPTION: CTA head and neck TECHNIQUE: Arterial phase CTA head and neck with immediate delayed imaging. Post processed images can include coronal and sagittal, curved and volume rendered reformatted images. CT perfusion of the brain with IV contrast Extra Series: None. Contrast administered: Intravenous: 120 mL IOHEXOL 350 MG IODINE/ML INTRAVENOUS SOLUTION. COMPARISON: CT HEAD CODE STROKE WO CONTRAST, ACC: [id number], dated 2025-08-13 10:52:06 INDICATION: Code stroke FINDINGS: CT perfusion: No core. No areas of T-max greater than 6 seconds. CTA NECK: Right Carotid system: The right common, internal, and external carotid arteries are patent. Left Carotid system: The left common, internal, and external carotid arteries are patent. Right Vertebral artery: The right vertebral artery is patent. Left Vertebral artery: Left vertebral artery is dominant with minimal narrowing in the left mid V2 due to uncovertebral joint hypertrophy. CTA HEAD: ANTERIOR CIRCULATION Trace calcified plaque in the bilateral carotid siphons. Bilateral MCAs are patent. 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 Hypoplastic right A1. The anterior communicating artery complex is present. POSTERIOR CIRCULATION Minimal stenosis dominant left V4 due to calcified plaque. Vertebral arteries otherwise unremarkable. Slightly tortuous basilar artery. Superior cerebellar arteries unremarkable. The posterior communicating artery complex is present. VENOUS STRUCTURES The major venous structures enhance normally. SOFT TISSUES: The visualized portions of the lung apices are unremarkable. Normal appearance of mediastinal structures. Heterogeneous thyroid gland with multiple nodules, the largest of which is on the right side measuring up to 1.8 cm. No lymphadenopathy. No acute osseous abnormalities. Moderate central canal stenosis C3-C4 to disc osteophyte complex. Procedure Note Francisco Montemayor MD - 08/13/2025 Reported dictated by Hay Jasso MD, Diagnostic Maintenance Data Analyst. EXAM DESCRIPTION: CTA head and neck TECHNIQUE: Arterial phase CTA head and neck with immediate delayed imaging. Postprocessed images can include coronal and sagittal, curved and volumerendered reformatted images. CT perfusion of the brain with IV contrast Extra Series: None. Contrast administered: Intravenous: 120 mL IOHEXOL 350 MG IODINE/ML INTRAVENOUS SOLUTION. COMPARISON: CT HEAD CODE STROKE WO CONTRAST, ACC: [id number], dated :52:06 INDICATION: Code stroke FINDINGS: CT perfusion: No core. No areas of T-max greater than 6 seconds. CTA NECK: Right Carotid system: The right common, internal, and external carotidarteries are patent. Left Carotid system: The left common, internal, and external carotidarteries are patent. Right Vertebral artery: The right vertebral artery is patent. Left Vertebral artery: Left vertebral artery is dominant with minimalnarrowing in the left mid V2 due to uncovertebral joint hypertrophy. CTA HEAD: ANTERIOR CIRCULATION Trace calcified plaque in the bilateral carotid siphons. Bilateral MCAs are patent. 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 Hypoplastic right A1. Theanterior communicating artery complex is present. POSTERIOR CIRCULATION Minimal stenosis dominant left V4 due to calcified plaque. Vertebralarteries otherwise unremarkable. Slightly tortuous basilar artery.Superior cerebellar arteries unremarkable. The posterior communicatingartery complex is present. VENOUS STRUCTURES The major venous structures enhance normally. SOFT TISSUES: The visualized portions of the lung apices are unremarkable.Normal appearance of mediastinal structures. Heterogeneous thyroid glandwith multiple nodules, the largest of which is on the right side measuringup to 1.8 cm. No lymphadenopathy. No acute osseous abnormalities. Moderate central canalstenosis C3-C4 to disc osteophyte complex. IMPRESSION: CTA HEAD: 1. No evidence of vessel occlusion or dissection. CTA NECK: 1. No evidence of vessel occlusion or dissection. 2. Right-sided thyroid nodule measuring up to 1.8 cm. Recommendultrasound, due to size criteria greater than 1.5 cm for furthercharacterization if not done recently, as clinically indicated.. CAROTID STENOSIS REFERENCE - distal internal carotid artery diameter asthe denominator for stenosis measurement: MILD = <50% stenosis. MODERATE = 50-69% stenosis. SEVERE = 70-89% stenosis. HAIRLINE/CRITICAL = 90-99% stenosis. OCCLUDED = 100% stenosis. I have reviewed all images of this examination and edited the abovedictation. Mery Pena MD [facility] CT ORDERABLES Final Res ult * CT Head Code Stroke Without Contrast (08/13/2025 10:53 AM EST) Anatomical Region Laterality Modality Computed Tomogra phy 08/13/2025 11:0 6 AM EST Impressions 08/13/2025 11:03 AM EST 1. No acute intracranial abnormality. 2. Patchy periventricular and subcortical white matter changes nonspecific and most likely representing sequela of small-vessel disease. Discussed with Dr. Abdullahi at 10:59 a.m. August 13, 2025. Narrative 08/13/2025 11:03 AM EST EXAM DESCRIPTION: CT SCAN OF THE HEAD WITHOUT INTRAVENOUS CONTRAST TECHNIQUE: Head CT was performed without intravenous contrast per standard departmental protocol.Dose lowering technique(s) such as automated exposure control, iterative reconstruction, and mA and/or KV adjustment for patient size was utilized for this exam. COMPARISON: None INDICATION: stroke symptoms FINDINGS: BRAIN/EXTRA-AXIAL: There is no intracranial hemorrhage. There are no extra-axial fluid collections. No areas of loss of lindsey white matter differentiation. Patchy periventricular and subcortical white matter changes nonspecific and most likely representing sequela of small-vessel disease. Patchy subcortical hypodensities in the subcortical white matter of the superior frontal gyri bilaterally and bilateral middle frontal gyri likely representing dilated perivascular spaces given symmetric appearance. There is no mass, mass effect or midline shift. The ventricles, sulci and cisterns are proportional and symmetric. BONES AND SOFT TISSUES: The skull is unremarkable. Visualized orbits are grossly unremarkable. The paranasal sinuses are normally pneumatized. Mastoid air cells and middle ears are normally pneumatized. Procedure Note Francisco Montemayor MD - 08/13/2025 EXAM DESCRIPTION: CT SCAN OF THE HEAD WITHOUT INTRAVENOUS CONTRAST TECHNIQUE: Head CT was performed without intravenous contrast per standarddepartmental protocol.Dose lowering technique(s) such as automatedexposure control, iterative reconstruction, and mA and/or KV adjustmentfor patient size was utilized for this exam. COMPARISON: None INDICATION: stroke symptoms FINDINGS: BRAIN/EXTRA-AXIAL: There is no intracranial hemorrhage. There are no extra-axial fluidcollections. No areas of loss of lindsey white matter differentiation. Patchyperiventricular and subcortical white matter changes nonspecific and mostlikely representing sequela of small-vessel disease. Patchy subcorticalhypodensities in the subcortical white matter of the superior frontal gyri bilaterally and bilateral middle frontal gyrilikely representing dilated perivascular spaces given symmetricappearance. There is no mass, mass effect or midline shift. The ventricles, sulci and cisterns are proportional and symmetric. BONES AND SOFT TISSUES: The skull is unremarkable. Visualized orbits aregrossly unremarkable. The paranasal sinuses are normally pneumatized. Mastoid air cells andmiddle ears are normally pneumatized. IMPRESSION: 1. No acute intracranial abnormality. 2. Patchy periventricular and subcortical white matter changes nonspecificand most likely representing sequela of small-vessel disease. Discussed with Dr. Abdullahi at 10:59 a.m. August 13, 2025. us Mery Pena MD [facility] CT ORDERABLES Final Res ult * XR Chest 1 Vw Portable (08/13/2025 10:46 AM EST) Anatomical Region Laterality Modality Chest Digital Radiogra phy 08/13/2025 10:5 2 AM EST Impressions 08/13/2025 10:49 AM EST No acute cardiopulmonary abnormality. Narrative 08/13/2025 10:49 AM EST EXAM DESCRIPTION: XR CHEST 1 VW PORTABLE TECHNIQUE: XR CHEST 1 VW PORTABLE COMPARISON: CT ABDOMEN PELVIS W CONTRAST, ACC: [id number], dated 2024-08-04 14:52:50; CT ABDOMEN AND PELVIS W CONTRAST, ACC: [id number], dated 2021-06-25 08:05:35 INDICATION: AMS FINDINGS: LINES/TUBES/DEVICES: None. LUNGS/PLEURA: No focal consolidation. No pleural effusion. No pneumothorax. HEART AND MEDIASTINUM: Normal cardiomediastinal silhouette. OSSEOUS/OTHER: Degenerative changes of the spine. Procedure Note Kylie Lundberg MD - 08/13/2025 EXAM DESCRIPTION: XR CHEST 1 VW PORTABLE TECHNIQUE: XR CHEST 1 VW PORTABLE COMPARISON: CT ABDOMEN PELVIS W CONTRAST, ACC: [id number], dated :52:50; CT ABDOMEN AND PELVIS W CONTRAST, ACC: [id number], dated [id number]:05:35 INDICATION: AMS FINDINGS: LINES/TUBES/DEVICES: None. LUNGS/PLEURA: No focal consolidation. No pleural effusion. Nopneumothorax. HEART AND MEDIASTINUM: Normal cardiomediastinal silhouette. OSSEOUS/OTHER: Degenerative changes of the spine. IMPRESSION: No acute cardiopulmonary abnormality. us Mery Pena MD [facility] DIAGNOSTIC IMAGING ORDE KOFI Final Result * BB Retype (08/13/2025 10:35 AM EST) BB RETYPE Received 08/13/2025 12:37 PM EST [facility] Blood Venipuncture / Unknown 08/13/2025 10:35 AM EST 08/13/2025 10:37 AM EST Dominog Abdullahi MD BLOOD BANK TEST ORDERABLES Fin al Result Performing Organization Address City/[facility]/ZIP Co de Phone Number [facility] [address] [place] [address] * ECG 12 lead (08/13/2025 10:23 AM EST) Pathologist [facility] Ventricular Heart Rate 58 BPM EKG [facility] Atrial Heart Rate 58 BPM EKG [facility] NJ Interval 174 ms EKG [facility] QRSD Interval 140 ms EKG [facility] QT Interval 480 ms EKG [facility] QTC Interval 471 ms EKG [facility] P Erie 4 degrees EKG [facility] R Erie -45 degrees EKG [facility] T Wave Erie 48 degrees EKG [facility] 08/13/2025 10:2 3 AM EST 08/13/2025 12:55 PM EST Narrative EKG [facility] - 08/13/2025 12:55 PM EST Sinus bradycardia with occasional premature ventricular complexes Left axis deviation Left bundle branch block Abnormal ECG When compared with ECG of 13-Aug-2025 10:22, (Unconfirmed) No significant change was found Confirmed by Pola Scuhltz ([id number]) on 08/13/2025 12:55:20 PM Procedure Note Pola Schultz Jr., DO - 08/13/2025 Sinus bradycardia with occasional premature ventricular complexes Left axis deviation Left bundle branch block Abnormal ECG When compared with ECG of 13-Aug-2025 10:22, (Unconfirmed) No significant change was found Confirmed by Pola Schultz ([id number]) on 08/13/2025 12:55:20 PM Domingo Abdullahi MD ECG ORDERABLES Final Result EKG [facility] [address] [place] [id number] * Toxicology Screen, Plasma (08/13/2025 10:23 AM EST) Pathologist [facility] Alcohol <10 <10 mg/dL 08/13/2025 1:30 PM EST [facility] Acetaminophen Result,Blood <3 <=30 ug/mL 08/13/2025 1:30 PM EST [facility] Salicylate Level, Blood <5 <30 mg/dL 08/13/2025 1:30 PM EST [facility] Benzodiazepines Screen,Blood Negative Negative 08/13/2025 1:30 PM EST [facility] Comment: Benzodiazepines cutoff is 50 ng/mL diazepam. Results should be used for medical purposes only and not for any legal or employment evaluative purposes. Tricyclics Screen Negative Negative 025 1:30 PM EST [facility] Comment: Tyicyclics cutoff is 300 ng/mL Nortriptyline. Results should be used for medical purposes only and not for any legal or employment evaluative purposes. Blood PERIPHERAL BLOOD SPECIMEN / Unknown Venipuncture / Unknown 08/13/2025 10:23 AM EST 08/13/2025 10:25 AM EST Mery Pena MD LAB BLOOD ORDERABLES Final Result [address] [address] [place] [address] * PT-INR (08/13/2025 10:23 AM EST) Pathologist [facility] INR 1.1 <1.3 08/13/2025 10:38 AM EST [facility] Blood PERIPHERAL BLOOD SPECIMEN / Unknown Venipuncture / Unknown 08/13/2025 10:23 AM EST 08/13/2025 10:25 AM EST Mery Pena MD LAB BLOOD [place] [address] * (ABNORMAL) Lactic Acid with 3 Hour Reflex (08/13/2025 10:23 AM EST) Lactic Acid 2.4(H) 0.5 - 2.0 mmol/L 08/13/2025 10:34 AM EST [facility] Blood PERIPHERAL BLOOD SPECIMEN / Unknown Venipuncture / Unknown 08/13/2025 10:23 AM EST 08/13/2025 10:25 AM EST Mery Pena MD LAB BLOOD ORDERABLES Final Result [place] [address] * Troponin (08/13/2025 10:23 AM EST) Troponin I <0.01 <=0.08 ng/mL 08/13/2025 10:52 AM EST [facility] Blood PERIPHERAL BLOOD SPECIMEN / Unknown Venipuncture / Unknown 08/13/2025 10:23 AM EST 08/13/2025 10:25 AM EST Mery Pena MD LAB BLOOD ORDERABLES Final Result [place] [address] * Mint Green Top (08/13/2025 10:23 AM EST) PST Tube Received 08/13/2025 10:53 AM EST [facility] Blood PERIPHERAL BLOOD SPECIMEN / Unknown Venipuncture / Unknown 08/13/2025 10:23 AM EST 08/13/2025 10:25 AM EST Domingo Abdullahi MD LAB BLOOD [place]AB[place] [address] * Gold Top (08/13/2025 10:23 AM EST) Gold Top Tube Received 08/13/2025 11:50 AM EST [facility] Blood PERIPHERAL BLOOD SPECIMEN / Unknown Venipuncture / Unknown 08/13/2025 10:23 AM EST 08/13/2025 10:26 AM EST us Domingo Abdullahi MD LAB BLOOD ORDERABLES Final Res ult Performing Organization Address City/[facility]/ZIP Co de Phone Number [place] [address] * Blue Top (08/13/2025 10:23 AM EST) Blue Top Tube Received 08/13/2025 10:38 AM EST [facility] Blood PERIPHERAL BLOOD SPECIMEN / Unknown Venipuncture / Unknown 08/13/2025 10:23 AM EST 08/13/2025 10:25 AM EST us Domingo Abdullahi MD LAB BLOOD ORDERABLES Final Res ult Performing Organization Address [facility]/ZIP Co de Phone Number [place] [address] * CBC and Differential (08/13/2025 10:23 AM EST) WBC 7.55 4.00 - 11.00 K/uL 08/13/2025 10:29 AM EST [facility] RBC 4.39 4.10 - 5.10 M/uL 08/13/2025 10:29 AM EST [facility] Hemoglobin 13.7 12.0 - 15.3 g/dL 08/13/2025 10:29 AM EST [facility] Hematocrit 40.1 36.0 - 45.0 % 08/13/2025 10:29 AM EST [facility] MCV 91 80 - 96 fL 08/13/2025 10:29 AM EST [facility] RDW 13.2 11.6 - 14.6 % 08/13/2025 10:29 AM EST [facility] Platelet Count 329 150 - 450 K/uL 08/13/2025 10:29 AM EST [facility] Neutrophil 65.7 % 08/13/2025 10:29 AM EST [facility] Lymphocyte 19.6 % 08/13/2025 10:29 AM EST [facility] Monocyte 10.5 % 08/13/2025 10:29 AM EST [facility] Eosinophil 3.4 % 08/13/2025 10:29 AM EST [facility] Basophil 0.5 % 08/13/2025 10:29 AM EST [facility] Immature Granulocyte (Winona, Myelo, Promyelocyte) 0.3 % 08/13/2025 10:29 AM EST [facility] Absolute Neutrophil Count 4.96 1.50 - 7.70 K/uL 08/13/2025 10:29 AM EST [facility] Absolute Immature Granulocyte (Winona, Myelo, Promyelocyte) 0.02 0.00 - 0.09 K/uL 08/13/2025 10:29 AM EST [facility] Absolute Lymphocyte Count 1.48 1.20 - 3.50 K/uL 08/13/2025 10:29 AM EST [facility] Absolute Monocyte Count 0.79 0.00 - 1.00 K/uL 08/13/2025 10:29 AM EST [facility] Absolute Eosinophil Count 0.26 0.00 - 0.40 K/uL 08/13/2025 10:29 AM EST [facility] Absolute Basophil Count 0.04 0.00 - 0.20 K/uL 08/13/2025 10:29 AM EST [facility] Differential Performed Auto Diff Reported 08/13/2025 10:29 AM EST [facility] Blood PERIPHERAL BLOOD SPECIMEN / Unknown Venipuncture / Unknown 08/13/2025 10:23 AM EST 08/13/2025 10:25 AM EST Narrative [facility] - 08/13/2025 10:29 AM EST Rack:[id number] Pos: 3 us Domingo Abdullahi MD LAB BLOOD ORDERABLES Final Res [place] [address] * Type and Screen (08/13/2025 10:23 AM EST) ABO and Rh O POS 08/13/2025 1:16 PM EST [facility] Antibody Screen NEG 1:16 PM EST [facility] TS Expiration Date 08/16/2025 23:59 08/13/2025 1:16 PM EST [facility] Blood Venipuncture / Unknown 08/13/2025 10:23 AM EST 08/13/2025 10:25 AM EST us Domingo Abdullahi MD BLO[facility] BANK TEST ORDERABLES Fin al Result Performing Organization Address City/State/[facility] Co de Phone Number [facility] [address] [place] [phone] * (ABNORMAL) Comprehensive Metabolic Panel (08/13/2025 10:23 AM EST) Sodium 137 135 - 146 mmol/L 08/13/2025 11:14 AM EST [facility] Potassium 4.5 3.4 - 5.2 mmol/L 08/13/2025 11:14 AM EST [facility] Comment:Serum sample Chloride 102 98 - 110 mmol/L 08/13/2025 11:14 AM EST [facility] Total CO2/Bicarbonate 22(L) 24 - 32 mmol/L 08/13/2025 11:14 AM EST [facility] Anion Gap 13 2 - 15 mmol/L 08/13/2025 11:14 AM EST [facility] Anion Gap 08/13/2025 11:14 AM EST [facility] BUN 26(H) 7 - 24 mg/dL 08/13/2025 11:14 AM EST [facility] Creatinine, Blood 0.92 0.50 - 1.10 mg/dL 08/13/2025 11:14 AM EST [facility] Glucose, Blood 207(H) 70 - 118 mg/dL 08/13/2025 11:14 AM EST [facility] Calcium 10.1 8.5 - 10.5 mg/dL 08/13/2025 11:14 AM EST [facility] Total Protein 7.9 6.0 - 8.2 g/dL 08/13/2025 11:14 AM EST [facility] Albumin, Blood 4.2 3.4 - 5.2 g/dL 08/13/2025 11:14 AM EST [facility] Globulin Result 3.7 2.0 - 4.0 g/dL 08/13/2025 11:14 AM EST [facility] AST (SGOT) 20 11 - 40 U/L 08/13/2025 11:14 AM EST [facility] ALT (SGPT) 23 4 - 35 U/L 08/13/2025 11:14 AM EST [facility] Alkaline Phosphatase 57 30 - 115 U/L 08/13/2025 11:14 AM EST [facility] Total Bilirubin 0.3 0.0 - 1.2 mg/dL 08/13/2025 11:14 AM EST [facility] Estimated GFR (MDRD) 58(L) >=60 mL/min/BS A 08/13/2025 11:14 AM EST [facility] Comment:This Cr-based equati on underestimates GFR in patients with increased muscle mass. Order CYSTATIN C WITH GFR ESTIMATE, [id number], if additional evaluation of renal function is needed. Blood PERIPHERAL BLOOD SPECIMEN / Unknown Venipuncture / Unknown 08/13/2025 10:23 AM EST 08/13/2025 10:26 AM EST us Domingo Abdullahi MD LAB BLOOD ORDERABLES Final Res ult [place] [address] * (ABNORMAL) POCT Glucose (08/13/2025 10:16 AM EST) [facility] Signature Glucose, POC 203(H) 70 - 118 mg/dL 08/13/2025 12:58 PM EST [facility] Blood 08/13/2025 10:1 6 AM EST 08/13/2025 12:58 PM EST Narrative [facility] - 08/13/2025 12:58 PM EST [facility] through Point of Care sql server bi developer managed by [facility]. CLIA Director- Mj Garg M.D. us Provider Not In System POCT ORDERABLES - DEVICE Final Result [facility] [address] [place] [phone] documented in this encounter Visit Diagnoses Diagnosis Dementia with behavioral disturbance (CMS-HCC)- Primary Transient alteration of awareness Dementia without behavioral disturbance ([facility]-HCC) [F03.90] documented in this encounter Administered Medications Inactive Administered Medications - up to 3 most recent administrations Medication Order MAR Action Action Date Dose Rate Site 0.9% sodium chloride (NS) BOLUS 500 mL 500 mL, Intravenous, Once, On Wed08/13/25 at 1259, For 1 dose, STAT, Administer over 30 Minutes New Bag 08/13/2025 1:00 PM EST 500 mL 1000 mL/hr aspirin (81mg) chewable tablet 81 mg 81 mg, Oral, Daily, First dose on Wed08/14/25 at 0900, Until Discontinued glipiZIDE ER (GLUCOTROL) 24 hr tablet 2.5 mg 2.5 mg, Oral, Daily with breakfast, First dose on Wed08/14/25 at 0800, Until Discontinued haloperidol lactate (HALDOL) injection 2.5 mg 2.5 mg, Intramuscular, 3 times daily PRN, Starting on Wed08/13/25 at 1542, Until Wed08/14/25 at 1422, agitation iohexoL (OMNIPAQUE) 350 mg iodine/mL injection 120 mL 120 mL, Intravenous, Once in imaging, Starting on Wed08/13/25 at 1058, For 1 dose, Hydrate well prior to and following administration. Given 08/13/2025 10:58 AM EST 120 mL lisinopriL (ZESTRIL) tablet 20 mg 20 mg, Oral, Daily, First dose on Wed08/13/25 at 1452, Hold Parameters: SBP, Hold for SBP less than: 100 mmHg Given 08/13/2025 3:17 PM EST 20 mg metFORMIN (GLUCOPHAGE) tablet 500 mg 500 mg, Oral, 2 times daily with breakfast and dinner, First dose on Wed08/13/25 at 1730, Until Discontinued QUEtiapine (SEROquel) tablet 25 mg 25 mg, Oral, At bedtime, First dose on Wed08/13/25 at 2100, Until Discontinued QUEtiapine (SEROquel) tablet 25 mg 25 mg, Oral, 2 times daily PRN, Starting on Wed08/13/25 at 1541, Until Wed08/14/25 at 1422, other, Agitation, paranoia documented in this encounter Active and Recently Administered Medications Due to Daylight Saving Time, this section may contain times in both EDT and EST. Scheduled Medication Order 08/12/2025 08/13/2025 08/14/2025 0.9% sodium chloride (NS) BOLUS 500 mL (COMPLETED) 500 mL, Intravenous, Once, On Wed08/13/25 at 1259, For 1 dose, STAT, Administer over 30 Minutes 1300 (New Bag - Provider: Yasmin Tariq, CESAR)1355 (Stopped - Provider: Yasmin Tariq RN) aspirin (81mg) chewable tablet 81 mg 81 mg, Oral, Daily, First dose on Wed08/14/25 at 0900, Until Discontinued 1108 (Not Given - Provider: Chanel Torres RN - Reason: NPO / Dysphagia) glipiZIDE ER (GLUCOTROL) 24 hr tablet 2.5 mg 2.5 mg, Oral, Daily with breakfast, First dose on Wed08/14/25 at 0800, Until Discontinued 1108 (Not Given - Provider: Chanel Torres RN - Reason: NPO / Dysphagia) lisinopriL (ZESTRIL) tablet 20 mg 20 mg, Oral, Daily, First dose on Wed08/13/25 at 1452, Hold Parameters: SBP, Hold for SBP less than: 100 mmHg 1517 (Given - Provider: Vanessa Hogue RN) 1108 (Not Given - Provider: Chanel Torres RN - Reason: NPO / Dysphagia) metFORMIN (GLUCOPHAGE) tablet 500 mg 500 mg, Oral, 2 times daily with breakfast and dinner, First dose on Wed08/13/25 at 1730, Until Discontinued 1730 (Canceled Entry - Provider: Automatic Discharge Provider - Comment: Automatically canceled at discontinue of medication order) 1106 (Not Given - Provider: Chanel Torres RN - Reason: NPO / Dysphagia) QUEtiapine (SEROquel) tablet 25 mg 25 mg, Oral, At bedtime, First dose on Wed08/13/25 at 2100, Until Discontinued 2307 (Not Given - Provider: Venice Bee RN - Reason: Patient refused PO med) PRN Medication Order 08/12/2025 08/13/2025 08/14/2025 haloperidol lactate (HALDOL) injection 2.5 mg 2.5 mg, Intramuscular, 3 times daily PRN, Starting on Wed08/13/25 at 1542, Until Wed08/14/25 at 1422, agitation iohexoL (OMNIPAQUE) 350 mg iodine/mL injection 120 mL (COMPLETED) 120 mL, Intravenous, Once in imaging, Starting on Wed08/13/25 at 1058, For 1 dose, Hydrate well prior to and following administration. 1058 (Given - Provider: MATEO Boyer) QUEtiapine (SEROquel) tablet 25 mg 25 mg, Oral, 2 times daily PRN, Starting on Wed08/13/25 at 1541, Until Wed08/14/25 at 1422, other, Agitation, paranoia documented in this encounter Care Teams Front Office Agent Relationship Specialty Start Date End Date Jorge Vazquez MD [facility] [address] [place] [id number] PCP - General Internal Medicine 01/10/21 Jorge Vazquez MD [facility] [address] [place] [id number] 01/10/21 Jorge Vazquez MD [facility] [address] [place] [id number] 08/20/14 documented as of this encounter
--- NOTE | ~2025-08-14 | CT_ITS ---
EXAMINATION: CT HEAD WITHOUT CONTRAST CLINICAL INFORMATION: Altered mental status. COMPARISON: No prior. TECHNIQUE: Contiguous axial imaging was performed from the skull base to vertex without intravenous administration of contrast. This CT examination was performed using dose optimization techniques as appropriate, variously including the following: *Automated exposure control *Adjustment of mA and/or kV according to patient size (this includes techniques or standardized protocols for targeted exams where dose is matched to indication/reason for exam; i.e. extremities or head) *Use of iterative reconstruction technique FINDINGS: There is no evidence of intracranial hemorrhage or extra-axial fluid collection. There is no mass effect, or edema. No CT evidence of acute territorial infarct. Ventricles, sulci, and cisterns are normal in size and configuration for patient age. No hydrocephalus. No midline shift. Negative hyperdense MCA sign. Negative insular ribbon sign. Patchy periventricular and deep white matter hypoattenuation is consistent with mild to moderate small vessel ischemic changes. Normal pituitary. Atheromatous calcification of the bilateral carotid siphons and V4 segments vertebral arteries bilaterally. Globes and orbital contents image normally. No extracranial soft tissue abnormalities. The paranasal sinuses, mastoid air cells, and tympanic cavities are normally aerated. No suspicious bony abnormalities. There are no acute fractures evident. There are severe degenerative changes in both TM joints. CT/CT head/brain wo IV con IMPRESSION: No acute intracranial abnormality. Electronically signed by: Roni Wang MD 08/14/2025 04:36 PM [facility]
--- NOTE | ~2025-08-14 | XR_ITS ---
EXAMINATION: XR CHEST 1 VIEW HISTORY: sob COMPARISON: There are no prior studies available for comparison. FINDINGS: A single AP portable view of the chest performed at 4:59 PM is submitted. The lungs are expanded and clear. There is no pleural effusion, pneumothorax, or pulmonary vascular congestion. The heart is normal in size. There is scoliosis and degenerative disc disease of the spine. XR/XR chest 1V IMPRESSION: The lungs are clear. Electronically signed by: Odell Smith MD 08/15/2025 08:08 AM [facility]
--- NOTE | 2025-08-14 13:56 | ED.GENADULT ---
HPI - General Adult General Chief complaint: Psychiatric Symptoms Stated complaint: coming from snf, altered mental status Time Seen by Provider: 08/14/25 13:55 Source: patient Mode of arrival: ambulatory Limitations: no limitations History of Present Illness ED Provider: Dr. Garay HPI narrative: This is a 80-year-old female presented hospital today for altered mentation. Patient has presented from [place]. Unable to obtain much history due to patient's mentation Related Data Allergies Allergy/AdvReac Type Severity Reaction Status Date / Time No Known Allergies Allergy Verified 08/14/25 15:20 Review of Systems Review of Systems: Unable to obtain PMFSH Past Medical History PMFSH Narrative: Unable to obtain Social History Social History Smoked in Last 30 Days: No Use of substances other than those prescribed or required for medical reasons: No Advance Directives: No Advance Directives Information Provided: Yes Physical Exam ED Exam Exam: General: Appears to be confused and agitated, uncooperative Head: Normacephalic, atraumatic ENT: oral mucosa moist, neck supple, no tracheal deviation Cardiovascular: regular rate, regular rhythm, no murmurs, rubbing, gallops Respiratory: CTAB, no wheeze, rales, rhonchi Gastrointestinal: Soft, non distended, non tender, non guarding Extremities: No limb pain or swelling, no calf tenderness Neurological: Appears confused eye shut moving all 4 extremity Skin: Diaphoretic Psychiatric: Appears to be confused Vital Signs: Vital Signs - 24 hr 08/14/25 14:10 08/14/25 15:01 Temperature 97.8 F Pulse Rate 113 H 86 Respiratory Rate 24 H 18 Blood Pressure 149/105 H 136/90 H Pulse Oximetry 96 Oxygen Delivery Method Room Air Room Air BMI result Body Mass Index 21.6 Medications Administered Discontinued Medications Generic Name Dose Route Start Last Admin Trade Name Freq PRN Reason Stop Dose Admin Sodium Chloride 1,000 mls @ 999 mls/hr 08/14/25 14:15 08/14/25 15:22 Ns IV 08/14/25 15:15 Not Given .Q1H1M ABNER Ceftriaxone Sodium 2 gm/ 50 mls @ 100 mls/hr 08/14/25 16:01 08/14/25 17:28 Sodium Chloride IV 08/14/25 16:30 Infused ONCE ONE Infusion Midazolam HCl 2 mg 08/14/25 14:02 08/14/25 14:15 Midazolam Hcl 2 Mg/2 Ml Vial IM 08/14/25 14:03 2 mg ONCE ONE Administration Olanzapine 5 mg 08/14/25 14:02 08/14/25 14:15 Olanzapine 10 Mg Vial IM 08/14/25 14:03 5 mg STAT STA Administration Medical Decision Making Medical Decision Making [facility] Narrative: This is a 80-year-old female presented hospital today for evaluation of altered mentation from [place]. I have reviewed the patient's discharge summary from [facility]. Patient was brought therefore confusion. Workup has been largely negative. Patient was sent to [facility]. I at this time we will plan to repeat lab work. We will obtain a UA, screening for sepsis. I do not think patient has sepsis. We will plan to perform a broad metabolic workup for the patient at this time. Patient is agitated uncooperative and physical with the nursing staff. We will plan to give IM Versed and IM Zyprexa to the patient at this time. Patient's son Raúl is at bedside. Patient's daughter Riya is also involved in her care however she lives in [place]. Raúl states that yesterday he was attempting to brain patient's back to his home and finding assisted living for the patient. However patient had a syncopal episode in the car. Therefore patient was brought to [facility]. Hospital performed an extensive workup for the patient. Patient was medically cleared however patient was placed on section 12. The patient's was then shipped to [place] for [facility] psych care. Patient's son did share frustration about sending the patient far away from her home. Patient's lives approximately 2 hours away from here. Patient's lab work significant for leukocytosis 12.2. Patient's chemistry did show elevated BUN to creatinine ratio. The patient was positive for nitrite and leuk esterase. We will suspect patient likely has UTI. A dose IV ceftriaxone will be given to the patient. Lactic acid is not elevated. We will discuss with the hospitalist to admit the patient for encephalopathy secondary to UTI. Review patient's discharge summary. They did perform a CTA head and neck which was negative yesterday. Differential Diagnosis Differential Diagnoses: The differential diagnosis associated with the presentation includes Altered mentation, confusion, dementia, UTI, hypothyroidism Lab Data [facility] Lab Attestation statement: I reviewed the patient's lab results. 08/14/25 15:26 08/14/25 15:26 Labs: Lab Results 08/14/25 08/14/25 08/14/25 Range/Units 15:26 15:27 15:34 WBC 12.2 H (4.8-10.8) X10*3/uL RBC 4.70 (4.20-5.50) X10*6/uL Hgb 14.2 (12.0-16.0) g/dl Hct 42.4 (37.0-47.0) % MCV 90.2 (80.0-98.0) fL MCH 30.2 (27.0-33.0) pg MCHC 33.5 (31.0-35.0) g/dl RDW 13.2 (11.0-16.0) % Plt Count 301 (160-400) X10*3/uL MPV 9.8 (9.4-12.3) fL Immature Gran % (Auto) 0.4 (0.0-0.4) % Neut % (Auto) 88.0 H (45-73) % Lymph % (Auto) 5.3 L (20-40) % [place] % (Auto) 5.8 (2-11) % Eos % (Auto) 0.2 (0-4) % Baso % (Auto) 0.3 (0-2) % Lymph # (Auto) 0.7 L (1.2-4.9) X10*3/uL [place] # (Auto) 0.7 (0.1-1.2) X10*3/uL Eos # (Auto) 0.0 (0.0-0.4) X10*3/uL Baso # (Auto) 0.0 (0.0-0.2) X10*3/uL Abs Immat Gran (auto) 0.05 H (0.00-0.03) X10*3/uL Absolute Neuts (auto) 10.7 H (2.0-8.3) x10*3/uL Absolute Nucleated RBC 0.000 (0.0-0.012) X10*3/uL Nucleated RBC % (auto) 0.0 (0.0-0.2) /100WBC VBG pH 7.39 (7.32-7.43) VBG pCO2 36 mmHg VBG pO2 48 mmHg VBG HCO3 22 (22-26) mmol/L VBG O2 Saturation 66.0 % VBG Base Excess -2.0 mmol/L Sodium 139 (135-145) mmol/L Potassium 3.7 (3.3-5.1) mmol/L Chloride 103 (96-108) mmol/L Carbon Dioxide 23 (22-29) mmol/L Anion Gap 17 (12-20) BUN 22 H (9-16) mg/dL Creatinine 0.85 (0.5-1.4) mg/dL Estim Creat Clear Calc 45.9 Estimated GFR > 60 Random Glucose 193 H (60-115) mg/dL Lactic Acid 1.7 (0.5-2.0) mmol/L Calcium 9.7 (8.4-10.2) mg/dL Total Bilirubin 0.5 (0.0-1.0) mg/dL AST 27 (5-31) U/L ALT 26 (0-31) U/L Alkaline Phosphatase 56 (39-117) U/L Ammonia 25 (13-55) umol/L Total Creatine Kinase 60 (26-140) U/L Total Protein 8.1 H (6.5-8.0) g/dL Albumin 4.9 (3.5-5.0) g/dL TSH 0.68 (0.32-4.0) uIU/mL Urine Color Urine Appearance Urine pH (5.0-9.0) Ur Specific [place] (1.005-1.025) Urine Protein (Neg-Trace) mg/dL Urine Glucose (UA) (Negative) mg/dL Urine Ketones (Negative) mg/dL Urine Blood (Negative) Urine Nitrite (Negative) Ur Leukocyte Esterase (Negative) Urine RBC (0-2) /HPF Urine WBC (0-5) /HPF Ur Squamous Epith Cells (0-2) /HPF Urine Bacteria (None Seen) Hyaline Casts (0-2) /LPF 08/14/25 Range/Units 15:49 WBC (4.8-10.8) X10*3/uL RBC (4.20-5.50) X10*6/uL Hgb (12.0-16.0) g/dl Hct (37.0-47.0) % MCV (80.0-98.0) fL MCH (27.0-33.0) pg MCHC (31.0-35.0) g/dl RDW (11.0-16.0) % Plt Count (160-400) X10*3/uL MPV (9.4-12.3) fL Immature Gran % (Auto) (0.0-0.4) % Neut % (Auto) (45-73) % Lymph % (Auto) (20-40) % [place] % (Auto) (2-11) % Eos % (Auto) (0-4) % Baso % (Auto) (0-2) % Lymph # (Auto) (1.2-4.9) X10*3/uL [place] # (Auto) (0.1-1.2) X10*3/uL Eos # (Auto) (0.0-0.4) X10*3/uL Baso # (Auto) (0.0-0.2) X10*3/uL Abs Immat Gran (auto) (0.00-0.03) X10*3/uL Absolute Neuts (auto) (2.0-8.3) x10*3/uL Absolute Nucleated RBC (0.0-0.012) X10*3/uL Nucleated RBC % (auto) (0.0-0.2) /100WBC VBG pH (7.32-7.43) VBG pCO2 mmHg VBG pO2 mmHg VBG HCO3 (22-26) mmol/L VBG O2 Saturation % VBG Base Excess mmol/L Sodium (135-145) mmol/L Potassium (3.3-5.1) mmol/L Chloride (96-108) mmol/L Carbon Dioxide (22-29) mmol/L Anion Gap (12-20) BUN (9-16) mg/dL Creatinine (0.5-1.4) mg/dL Estim Creat Clear Calc Estimated GFR Random Glucose (60-115) mg/dL Lactic Acid (0.5-2.0) mmol/L Calcium (8.4-10.2) mg/dL Total Bilirubin (0.0-1.0) mg/dL AST (5-31) U/L ALT (0-31) U/L Alkaline Phosphatase (39-117) U/L Ammonia (13-55) umol/L Total Creatine Kinase (26-140) U/L Total Protein (6.5-8.0) g/dL Albumin (3.5-5.0) g/dL TSH (0.32-4.0) uIU/mL Urine Color Yellow Urine Appearance Cloudy Urine pH 5.5 (5.0-9.0) Ur Specific [place] >= 1.030 H (1.005-1.025) Urine Protein 300 (3+) H (Neg-Trace) mg/dL Urine Glucose (UA) Negative (Negative) mg/dL Urine Ketones 80 (Negative) mg/dL Urine Blood Moderate (2+) H (Negative) Urine Nitrite Positive H (Negative) Ur Leukocyte Esterase Moderate (2+) H (Negative) Urine RBC 11-20 H (0-2) /HPF Urine WBC >50 H (0-5) /HPF Ur Squamous Epith Cells 3-5 (0-2) /HPF Urine Bacteria 4+ (None Seen) Hyaline Casts 0-2 (0-2) /LPF Independent Interpretation I performed an independent interpretation of an: EKG and CT Scan Radiology Impression Discussion of test interpretation with radiology: I have reviewed the radiologist's reading. Discharge Plan Discharge Clinical Impression: Encephalopathy, UTI (urinary tract infection) Patient Disposition: Admitted As Inpatient Interventions: Garza-Suicide Risk Severity Scale Last Done: 08/14/25 17:25 Print Language: Turkmen
--- NOTE | 2025-08-14 14:07 | ECG_ITS ---
Test Reason : ams Blood Pressure : */* mmHG Vent. Rate : 92 BPM Atrial Rate : 92 BPM P-R Int : 162 ms QRS Dur : 134 ms QT Int : 408 ms P-R-T Axes : 22 -29 140 degrees QTcB Int : 504 ms Normal sinus rhythm Possible Left atrial enlargement Left bundle branch block Abnormal ECG No previous ECGs available Referred By: Connie Garay Electronically Signed By: Juan Pablo Rueda
[2025-08-14 14:10] VITALS: BP 149/105; PULSE 113; RESP 24; BMI 21.6
[2025-08-14] MEDS: OLANZapine 10 MG VIAL 5 MG IM (14:15)
[2025-08-14 15:01] VITALS: BP 136/90; PULSE 86; RESP 18; TEMP 36.6; O2SAT 96
[2025-08-14 15:34] LABS: MANUAL DIFF FLAG NO
[2025-08-14 15:36] LABS: Hematocrit 42.4 % (37.0-47.0); Hemoglobin 14.2 g/dl (12.0-16.0); Imm Gran Abs Auto 0.05 X10*3/uL (0.00-0.03); Imm Gran Pct Auto 0.4 % (0.0-0.4); Lymphocytes Absolute Auto 0.7 X10*3/uL (1.2-4.9); Mean Corpuscular HGB Conc 33.5 g/dl (31.0-35.0); Mean Corpuscular Hemoglobin 30.2 pg (27.0-33.0); Mean Corpuscular Volume 90.2 fL (80.0-98.0); NRBC Abs Auto 0.000 X10*3/uL (0.0-0.012); NRBC Pct Auto 0.0 /100WBC (0.0-0.2); Platelet Count 301 X10*3/uL (160-400); Red Blood Count 4.70 X10*6/uL (4.20-5.50); White Blood Count 12.2 X10*3/uL (4.8-10.8)
[2025-08-14 15:37] LABS: VBG HCO3 22 mmol/L (22-26); VBG O2 % Saturation 66.0 %
[2025-08-14 15:44] LABS: Venous Blood Gas Refer to POC result
[2025-08-14 15:49] LABS: Alanine Aminotransferase 26 U/L (0-31); Albumin Level 4.9 g/dL (3.5-5.0); Alkaline Phosphatase 56 U/L (39-117); Anion Gap 17 (12-20); Aspartate Amino Transferase 27 U/L (5-31); Blood Urea Nitrogen 22 mg/dL (9-16); Calcium 9.7 mg/dL (8.4-10.2); Carbon Dioxide 23 mmol/L (22-29); Chloride 103 mmol/L (96-108); Creatinine Clr Calc Pharmacy 45.9; Estimated Glomerular Filt Rate > 60; Potassium 3.7 mmol/L (3.3-5.1); Sodium 139 mmol/L (135-145); Total Protein 8.1 g/dL (6.5-8.0)
[2025-08-14 15:49] LABS: Ammonia 25 umol/L (13-55)
--- NOTE | 2025-08-14 15:51 | MHC.CM.ED ---
CM spoke with provider. Pt is appropriate for CARE team consult. CM will defer to them. Medical work up pending.
[2025-08-14 15:59] LABS: Appearance Urine Cloudy; Glucose Urine UA Negative (Negative); PH 5.5 (5.0-9.0); Specific Gravity - Urine >= 1.030 (1.005-1.025); UMIC TRIGGER UA YES
--- NOTE | 2025-08-14 17:34 | PC.NURSE ---
Pt coming from [place], EMS reporting she had only been there for a few minutes and was determined they were not going to be able to accept her. Pt had been sectioned from [facility]. Pt arrived to [facility] yeling multiple individual words over and over, was resistive to staff. IM medication given on arrival for pt and staff safety. This RN and mine production engineer went through paperwork with MD to attempt and find out information on patient and situation. Son Raúl on paperwork called and notified that she was here. Pt son at bedside, pt did settle down and let staff change her over and provide hygiene care, she did allow staff to obtain lab works/ scans, and place an IV for medications. Careteam and directors involved in situation at this time, plan to admit for medical and once cleared medically then re-assess for psych needs and or safe dispo DC plan of assisted living vs being home alone. Pt is still intermit confused at times but has become much more calm and cooperative with staff at this time, she is more trusting with certain staff, however has been able to converse with everyone who has been in the room as well.
--- NOTE | 2025-08-14 17:50 | PM.IMHP ---
History of Present Illness Date of Service: 08/14/25 Chief Complaint: Confusion confusion 80-year-old woman presented to the ER from [place] with increased confusion. Patient lives near the [place] area and had presented with her son to the [facility] after having a syncopal episode while in the car with her son. Apparently they were driving around checking out assisted living facilities and the son said that she passed out. He brought her to [facility] and there she became combative, stated that she wanted to . Initially no infectious source was found and patient was placed on section 12. She was then accepted at [place] and transferred there today. Upon arrival to [place] due to her combativeness and aggressiveness she was brought to [facility] for medical management. UA appears to be positive, she has a mildly elevated white blood cell count of 12.2. Head CT was done which was negative for any acute abnormality. Chest x-ray appears to be negative for consolidation or effusion. No fever noted. She was given a dose of Rocephin, Zyprexa and 1 L of IV fluids. She will be admitted for further management and treatment of acute encephalopathy secondary to urinary tract infection. Review of Systems Review of Systems: Denies any recent fever chills or decrease in appetite respiratory denies any shortness of breath or cough cardiovascular denied chest pain gastrointestinal denies any dysphagia abdominal pain nausea vomiting or diarrhea genitourinary denies any dysuria frequency or hematuria musculoskeletal denies any joint pain or swelling neuropsych denies any weakness or seizures all other systems reviewed are negative [facility] Medical History (Updated 08/14/25 @ 17:55 by Melissa Andrews NP) Hyperlipidemia Hypertension Diabetes mellitus type 2 in nonobese Social History Smoked in Last 30 Days: No Use of substances other than those prescribed or required for medical reasons: No Advance Directives: No Advance Directives Information Provided: Yes Meds Allergies Allergy/AdvReac Type Severity Reaction Status Date / Time No Known Allergies Allergy Verified 08/14/25 15:20 Physical Exam Vital Signs and Narrative: Vital Signs: Last Vital Signs Temp 97.8 F 08/14/25 15:01 Pulse 86 08/14/25 15:01 Resp 18 08/14/25 15:01 BP 136/90 H 08/14/25 15:01 Pulse Ox 96 08/14/25 15:01 O2 Del Method Room Air 08/14/25 15:01 BMI result Body Mass Index 21.6 Appearing in no acute distress head is normocephalic atraumatic eyes pupils are PERRLA sclera is anicteric mouth throat mucous membranes are intact and moist neck is supple no lymphadenopathy, no JVD noted lung sounds are clear to auscultation heart regular rate rhythm, clear S1, S2 positive bowel sounds, abdomen is soft, nontender neuro patient is alert x3, no focal deficits Results Labs 08/14/25 15:26 08/14/25 15:26 Labs: Laboratory Results - last 24 hr 08/14/25 08/14/25 08/14/25 15:26 15:27 15:34 MCV 90.2 MCH 30.2 MCHC 33.5 RDW 13.2 Plt Count 301 MPV 9.8 Immature Gran % (Auto) 0.4 Neut % (Auto) 88.0 H Lymph % (Auto) 5.3 L [place] % (Auto) 5.8 Eos % (Auto) 0.2 Baso % (Auto) 0.3 Lymph # (Auto) 0.7 L [place] # (Auto) 0.7 Eos # (Auto) 0.0 Baso # (Auto) 0.0 Abs Immat Gran (auto) 0.05 H Absolute Neuts (auto) 10.7 H Absolute Nucleated RBC 0.000 Nucleated RBC % (auto) 0.0 VBG pH 7.39 VBG pCO2 36 VBG pO2 48 VBG HCO3 22 VBG O2 Saturation 66.0 VBG Base Excess -2.0 Anion Gap 17 Estim Creat Clear Calc 45.9 Estimated GFR > 60 Random Glucose 193 H Lactic Acid 1.7 Calcium 9.7 Total Bilirubin 0.5 AST 27 ALT 26 Alkaline Phosphatase 56 Ammonia 25 Total Creatine Kinase 60 Total Protein 8.1 H Albumin 4.9 TSH 0.68 Urine Color Urine Appearance Urine pH Ur Specific [place] Urine Protein Urine Glucose (UA) Urine Ketones Urine Blood Urine Nitrite Ur Leukocyte Esterase Urine RBC Urine WBC Ur Squamous Epith Cells Urine Bacteria Hyaline Casts 08/14/25 15:49 MCV MCH MCHC RDW Plt Count MPV Immature Gran % (Auto) Neut % (Auto) Lymph % (Auto) [place] % (Auto) Eos % (Auto) Baso % (Auto) Lymph # (Auto) [place] # (Auto) Eos # (Auto) Baso # (Auto) Abs Immat Gran (auto) Absolute Neuts (auto) Absolute Nucleated RBC Nucleated RBC % (auto) VBG pH VBG pCO2 VBG pO2 VBG HCO3 VBG O2 Saturation VBG Base Excess Anion Gap Estim Creat Clear Calc Estimated GFR Random Glucose Lactic Acid Calcium Total Bilirubin AST ALT Alkaline Phosphatase Ammonia Total Creatine Kinase Total Protein Albumin TSH Urine Color Yellow Urine Appearance Cloudy Urine pH 5.5 Ur Specific [place] >= 1.030 H Urine Protein 300 (3+) H Urine Glucose (UA) Negative Urine Ketones 80 Urine Blood Moderate (2+) H Urine Nitrite Positive H Ur Leukocyte Esterase Moderate (2+) H Urine RBC 11-20 H Urine WBC >50 H Ur Squamous Epith Cells 3-5 Urine Bacteria 4+ Hyaline Casts 0-2 Imaging Radiologist's Impressions: Impressions Head CT 08/14/25 16:12 IMPRESSION: No acute intracranial abnormality. Electronically signed by: Roni Wang MD 08/14/2025 04:36 PM [facility] Workstation: Interventional [id number] Assessment and Plan (1) UTI (urinary tract infection): Qualifiers: Hematuria presence: without hematuria Urinary tract infection type: site unspecified Qualified Code(s): N39.0 - Urinary tract infection, site not specified Status: Acute Plan 80-year-old woman transferred from [facility] in [place], [place] [facility] due to aggression and confusion Acute encephalopathy secondary to urinary tract infection Patient's son denies any psychiatric issues other than some confusion Start IV Rocephin Follow urine culture Redirection Aggressiveness Patient placed on section 12 and transferred to [place] from [place] At this time patient does not have a section 12 Continue sitter, psychiatric consultation We will need care team consultation when medically clear Diabetes mellitus type 2 Sliding scale, check A1c Hypertension Stable blood pressure Continue home medications DVT prophylaxis with heparin Full code Quality Stroke Does the patient have a stroke diagnosis?: No VTE Prior VTE?: No VTE Risk Level:: Medical - moderate - high VTE Device Contraindication: Treatment Not Indicated VTE Drug Contraindication: N/A - Med Ordered
--- OUTSIDE RECORDS SUMMARY | 2025-08-14 18:13 | XMS_ITS | Encounter Summary ---
Author Organization [facility] Address [address] [place] [address] Care Team Providers Care Electrical Systems Design Engineer Name Role Phone Jorge Vazquez MD Primary Care Provider [phone] Jorge Vazquez MD Unavailable Jorge Vazquez MD Unavailable Encounter Details Date Type Department Care Team (Latest Contact Info) Description 08/13/2025 Travel Social History Tobacco Use Types Packs/Day Years [...] any time in the past 12 m [facility], were you homeless or living in a half-way (including now)? No 08/13/2025 [facility] Utilities Answer Date Recorded In the past [...] on file documented as of this encounter Plan of Treatment Not on file documented as of this encounter Visit Diagnoses Not on filedocumented in this encounter Care Teams Electrical Systems Design Engineer Relationship Specialty Start Date End Date Jorge Vazquez MD 2 [facility] [address] [place] [phone] PCP - General Internal Medicine 01/10/21 Jorge Vazquez MD 2 [facility] [address] [place] [phone] 01/10/21 Jorge Vazquez MD 2 [facility] [address] [place] [id number] 08/20/14 documented as of this encounter
--- OUTSIDE RECORDS SUMMARY | 2025-08-14 18:13 | XMS_ITS | Encounter Summary ---
Author Organization [facility] Address [address] [place] [address] [place] [id number] Care Team Providers Care General Forecaster Name Role Phone Jorge Vazquez Md Primary Care Provider Lisa Wells Pa-C Unavailable Jorge Vazquez Md Unavailable Reason for Visit * Reason Comments Blood in Stool/Rectal Bleeding Encounter Details Date Type Department Care Team (Late st Contact Info) Description 11/27/2020 Telephone [facility] [address] [place] [address] Jorge Vazquez MD [address] [place] [address] BLOOD IN STOOL/RECTAL BLEEDING Social History Tobacco Use Types Packs/Day Years Used Date Smoking Tobacco: Never Smokeless Tobacco: Never Alcohol Use Standard Drinks/Week Comments No 0 (1 standard drink = 0.6 oz pur e alcohol) Comments No Sex and Gender Information Value Date Recorded Sex Assigned at Not on file Legal Sex Female 5:56 PM EDT Gender Identity Not on file Sexual Orientation Not on file 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 Papi Echavarria today at 2:00 pm. She was trying to get a message to Dr. Vazquez but was having trouble with her [employer]. I have given her the number to call for [employer] so they can assist her. She said that she has put off her colo and is now worried because she has some rectal bleeding. She is asking for us to fax over information to Dr. Echavarria. I will fax that over but she wanted to make sure that Dr. Vazquez knows. documented in this encounter Plan of Treatment Upcoming Encounters Date Type Department Care Team (Late st Contact Info) Description 08/21/2025 9:30 AM EST Office Visit [facility] [address] [place] [address] Jorge Vazquez MD [address] [place] [address] documented as of this encounter Visit Diagnoses Not on filedocumented in this encounter Care Teams General Forecaster Relationship Specialty Start Date End Date Jorge Vazquez MD [address] [place] [address] PCP - General 05/25/03 Jorge Vazquez MD [address] [place] [address] PCP - MSSP Attributed PCP 10/11/2405/13 Lisa Wells Pa-C [address] [place] [address] Primary Care [facility] Internal [facility] 08/13/23 documented as of this encounter
--- OUTSIDE RECORDS SUMMARY | 2025-08-14 18:13 | XMS_ITS | Encounter Summary ---
Author Organization [facility] Address [address] [place] [address] Care Team Providers Care Telecommunications Facility Examiner Name Role Phone Jorge Vazquez Md Primary Care Provider [phone] Lisa Wells Pa-C Unavailable Reason for Visit * Reason Comments FYI Encounter Details Date Type Department Care Team (Late st Contact Info) Description 08/13/2025 Telephone [facility] [address] [place] [address] [facility], /[place] [address] Altered Mental Status, Unspecified Altered Mental Status Type (Primary Dx) Social History Tobacco Use Types Packs/Day Years Used Date Smoking Tobacco: Never Smokeless Tobacco: Never Alcohol Use Standard Drinks/Week Comments No 0 (1 standard drink = 0.6 oz pur e alcohol) Hunger Vital Sign Answer Date Recorded Within the past 12 months, y ou worried that your food would run out before you got the money to buy more. Never true 12/16/19 25 Within the past 12 months, t he food you bought just didn't last and you didn't have money to get more. Never true 12/15/2024 PRAPARE - Transportation Answer Date Re corded In the past 12 months, has l ack of transportation kept you from medical appointments or from getting medications? Yes 04/2025 In the past 12 months, has l ack of transportation kept you from meetings, work, or from getting things needed for daily living? No 12/15/2024 Depression Answer Date Recorded Last PHQ-2 0 05/25/2025 Last PHQ-9 Not on file 05/25/2025 Suicidal Ideation/Self Harm Risk Not on file 05/25/2025 Housing Stability Answer Date Recorded What is your housing situation today? Has [place] 12/15/2024 Are you worried about losing your housing? No 12/15/[address] you li ve. Do you have problem with any of the following? (Choose all that apply) None of the Above 04/2025 Request Assistance Answer Date Recorded Would you like to discuss an y of the needs you identified in this survey with a member of your care team? No Are any of your needs urgent? No Social Isolation Answer Date Recorded How often do you feel lonely or isolated from th ose around you? Never 12/15/2024 Family Needs Answer Date Recorded In the past year, have you o r any family members that you live with been unable to get resources (utilities such as power, water, or phone service; clothing; childcare; medicine or other healthcare; employment; etc) when they were really needed? No needs 12/15/2024 Other Needs Not on file 12/15/2024 Safety Answer Date Recorded Do you feel physically and e motionally safe where you currently live? Yes 12/15/2024 Self-Management Confidence Answer Date Recorded How confident are you that y ou can control and manage most of your health problems? Please provide numerical response between 0 -10. 0 = Not at all confident, 10= Completely confident. 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 documented in this encounter Plan of Treatment Upcoming Encounters Date Type Department Care Team (Late st Contact Info) Description 08/21/2025 9:30 AM EST Office Visit [facility] [address] [place] [address] Jorge Vazquez MD [address] [place] [address] documented as of this encounter Visit Diagnoses Diagnosis Altered mental status, unspecified altered mental status type- Primary documented in this encounter Care Teams Telecommunications Facility Examiner Relationship Specialty Start Date End Date Jorge Vazquez [facility] [address] [facility] [place] [address] PCP - General 05/25/03 Lisa Wells Pa-C [address] [place] [address] Primary Care [facility] Internal Medicine 08/13/23 documented as of this encounter
--- OUTSIDE RECORDS SUMMARY | 2025-08-14 18:13 | XMS_ITS | Clinical Summary ---
Author Organization [facility] Address [address] [place] [address] [phone] [place] [address] Care Team Providers Care Brain Picker Name Role Phone Jorge Vazquez Md Primary Care Provider [phone] Lisa Wells Pa-C Unavailable Allergies Active Allergy Reactions Criticality Noted Date Comments Sulfa (Sulfonamide Antibiotics) 02/21/2007 Facial and eye swelling Ciprofloxacin 01/21/2010 Loose stools, pt can tolerate if she has to Medications * This document contains information received from the source organization and may not represent a complete record from that organization. ASPIRIN TABLET DR 81MG POIndications:Ph ysical exam,DM (diabetes mellitus), type 2,Hypertension, essential,Thyroi d nodule 1 tablet daily (OTC) 0 0 09/23/20 06 Active blood sugar diagnostic (ONETOUCH ULTRA BLUE TEST STRIP) Strip Testing once a day. Dx:11.9 diabetes mellitus 100 strip 3 06/20/20 21 Active Blood-Glucose Meter (ONETOUCH ULTRA2 METER) Misc Testing once a day. Dx:11.9 diabetes mellitus 1 each 07/02/20 21 Active Psyllium Seed-Sucrose (METAMUCIL, SUGAR,) Powder 1 teaspoon in 10 to 12 ounces of water each morning 368 gram 02/20/20 22 Active solifenacin (VESICARE) 10 mg tablet Take 1 tablet by mouth daily Per Dr Harmon () 90 tablet 3 12/15/19 23 Active Cholecalciferol, Vitamin D3, (VITAMIN D-3) 50 mcg (2,000 unit) capsuleIndicatio ns:Age related osteoporosis, unspecified pathological fracture presence 2000 units once daily in the monthly 30 capsule 04/28/20 24 Active glipiZIDE 2.5 mg tablet extended release 24hr SR 24 HrIndications:Ty pe 2 diabetes mellitus with diabetic polyneuropathy, without long-term current use of insulin ([facility]) Take 1 tablet by mouth daily with breakfast 90 tablet 3 08/11/20 24 Active lisinopriL 20 mg tabletIndication s:Hypertension, essential Take 1 tablet by mouth daily 90 tablet 3 08/11/20 24 Active famotidine 20 mg tablet Take 1 tablet by mouth twice daily 180 tablet 3 08/11/20 24 Active simvastatin 10 mg tabletIndication s:Prescription refill TAKE 1 TABLET BY MOUTH EVERY DAY IN THE EVENING FOR CHOLESTEROL 90 tablet 3 12/12/19 25 Active metFORMIN 500 mg tabletIndication s:Type 2 diabetes mellitus without complication, without long-term current use of insulin ([facility]) Take 2 tablets by mouth twice daily with meals 360 tablet 3 12/16/19 25 Active sertraline 25 mg tablet Take 1 tablet by mouth daily 90 tablet 3 07/26/20 25 Active Cyanocobalamin, Vitamin B-12, 1,000 mcg tablet extended release Take 1 tablet by mouth daily (available over the counter) 100 tablet 11/07/19 20 025 Discontin ued(Med List Clean-up) chlorhexidine 0.12 % Mouthwash 01/09/20 22 025 Discontin ued(Med List Clean-up) Active Problems Problem Noted Date Diagnosed Date Anxiety 07/27/2025 DNR (do not resuscitate) discussion 03/29/2025 Overview (03/29/2025): MOLST form completed 03/29/2025 and will be scanned into the record. Copies given for patient to have original at home on the refrigerator and copies with her daughter Tracey and son Raúl as needed She chooses to be DNR DNI and that discussion was held with her healthcare proxy present who is in agreement with her choices. She wants nothing heroic done. Willing to go to hospital for short-term care and short-term IV fluids or IV treatment as needed but no dialysis, feeding tubes, intubation or CPR. Type 2 diabetes mellitus wit hout complication, without long-term current use of insulin 03/15/2025 Recurrent UTI 09/09/2022 Posterior vitreous detachment of right eye 04/07 Overview (04/07/2021): 03/2021--f/b Ophtho (Dr Grnaado) Moderate vascular dementia with mood disturbance 03/13/2021 Overview (03/29/2025): MRI Brain 2020 : atrophy and sm vessel changes. Executive fxn more limited over time--as of 03/13/21 HCProxy activated (dtr Tracey Styles) whose contact info is in [facility] Symptoms stabilized for a fair bit of time but then flared up and spring 2024 upon her return from [place] when she broke up with her boyfriend and has had some increased anxiety and mood issues and agitation at times and some medication noncompliance and some challenges living independently in her current apartment complex. Daughter Tracey flew up from [place] and attended our 03/29/2025 follow-up visit and we discussed this at length. Likely needs some we discussed this at length. Likely needs some more supportive living environment with the possibility of memory care unit down the road. Still fairly functional but having some mood and outburst issues. Her son Raúl is her power of quill reamer and daughter Tracey is healthcare proxy. They have permission to discuss her care as necessary and while healthcare proxy has been fully instituted Tracey will likely participate at least remotely in follow-up visit and communicate with me as needed through [facility] portal as a search for appropriate assisted living facilities begins History of colonic polyps 11/28/2020 Overview (01/27/2022): Added automatically from request for surgery [id number] Dermatitis 11/05/2019 Overview (11/05/2019): Eczema on abd wall; [facility] derm on scalp Overactive bladder 09/14/2017 Overview (01/27/2022): Last Assessment & Plan: Patient has not resumed her vesicare at this time due urinary symptoms after a colonoscopy. She reports when she saw Dr. Lawrence from Gynecology it was discussed that she had a hysterectomy and bladder uplift done in the past. She would like to discuss restarting vesicare and bladder lift with Dr. Harmon. PVR today 66 cc. Follow up in [address] Harmon. GERD without esophagitis 06/24/2016 Overview (09/06/2018): On H2 john chronically Sigmoid diverticulitis 06/19/2016 Systolic murmur 12/30/2014 Overview (03/18/2019): Assx systolic murmur Drew at 2014 pex-> echocardiogram done 12/2014 was essentially normal. Will follow clinically No murmur heard at exam 05/03/17 or 09/05/18 or 03/17/19 Uterine prolapse 07/09/2014 Overview (05/04/2017): pessary 04/[address] Lawrence (group insurance special agent) Worked well for awhile but needed vag hyst [place] [address] Lawrence Acquired female bladder prolapse 07/09/2014 Overview (05/04/2017): With urinary incontinence--seeing Dr Matthew of urogyn--> to try pelvic PT and if fails ? Vag hyst with cystocele repair with Dr Matthew is the plan 2013: she switched to Dr Harmon of (on med but no procedure planned yet). Had pesary per Pricing Director as of 2014 and avoiding UTIs with that for awhile Then sx required vag hyst with sling in 2014 by Marta Lawrence of Pricing Director and Dr Harmon of and did well with much better UTI situation thereafter History of HPV 09/18/2013 Overview (05/04/2017): In past. Nl pap. HPV cleared on subsequent testing She sees Dr Lawrence of Pricing Director regularly S/p hyst for prolapse in 2015 Hyperlipidemia 02/20/2013 Overview (04/28/2024): Procedure Value Date CHOLESTEROL 129 01/12/2024 HDL 49 01/12/2024 LDL 53.8 01/12/2024 TRIGLYCERIDES 131 01/12/2024 Osteoporosis 09/21/2011 Overview (05/03/2017): On alendronate since 05/2011 Done after 5 yrs Left bundle branch block 03/14/2009 Overview (05/04/2017): Exercise-induced LBBB with nl myoview and no CP at 02/16 e-myoview nonspec ant t changes remain on EKG but no LBBB on 05/03/17 ekg Paresthesias/numbness 09/24/2005 Overview (09/24/2005): left arm and leg x many years. intermitent. carotid u/s ok 09/14 Hypertension, essential 08/27/2004 Overview (12/29/2007): Lisinopril helps Colonic polyp 08/27/2004 Overview (05/17/2023): dysplastic (2000). 2003 1 tubular adenoma. 2006 no polyps; LAST Nov 2011. (GI= [facility]ol[facility])->he rec'd next in 2015. S 04/2015 colo showed diverticulosis only. No polyps. Last 2020 Multinodular goiter 08/27/2004 Overview (03/17/2019): benign L (05/2000) by bx. 2005 f/u u/s c/w multinodular goiter and no dominant nodule Procedure Value Date TSH 0.93 02/02/2018 Resolved Problems Problem Noted Date Diagnosed Date Resolved Date Type 2 diabetes mellitus wit hout complication, without long-term current use of insulin 12/15/2024 03/15/2025 Systolic murmur 12/02/2014 12/30/2014 Overview (12/02/2014): Drew for 1st time at 11/30/14 primary care visit. Assx. Echo ordered Hyperlipidemia 02/20/2013 05/28/2013 Type 2 diabetes mellitus wit h diabetic polyneuropathy, without long-term current use of insulin 09/23/2006 12/15/2024 Overview (12/15/2024): Dx updated by risk adj RN, refer to pod/OV MGB 02/23/23- NEUROLOGIC: Loss of protective sensation was evaluated and determined with a [place] Jani monofilament wire with decreased sensations of light touch, pain, temperature, joint position and vibration were absent due to peripheral neuropathy bilateral. Procedure Value Date HEMOGLOBIN A1C 7.2 (H) 12/09/2024 HEMOGLOBIN A1C 6.9 (H) 10/21/2024 HEMOGLOBIN A1C 7.4 (H) 07/01/2024 Procedure Value Date MICROALBUMIN/CREATININE RATIO 32.1 (H) 12/09/2024 MICROALBUMIN/CREATININE RATIO 23.6 01/12/2024 MICROALBUMIN/CREATININE RATIO 45.6 (H) 05/05/2023 Encounters Date Type Department Care Team Description 08/13/2025 Telephone [facility] [address] [place] [phone] Franck Hoang RN Altered Mental Status, Unspecified Altered Mental Status Type (Primary Dx) 08/13/2025 Telephone [facility] [address] [place] [phone] [facility], / Altered Mental Status, Unspecified Altered Mental Status Type (Primary Dx) 07/26/2025 10:30 AM EDT Office Visit [facility] [address] [place] [phone] Jorge Vazquez MD Type 2 diabetes mellitus without complication, without long-term current use of insulin ([facility]) (Primary Dx); GERD without esophagitis; Moderate vascular dementia with mood disturbance ([facility]); Hypertension, essential; Anxiety; Recurrent UTI 07/23/2025 Telephone [facility] [address] [place] [phone] [facility], Im/Fm Type 2 Diabetes Mellitus Without Complication, Without Long-Term Current Use of Insulin ([facility]) (Primary Dx); Age Related Osteoporosis, Unspecified Pathological Fracture Presence; Thyroid Nodule; Routine Health Maintenance; Recurrent Uti 07/21/2025 Telephone [facility] [address] [place] [address] Dee Young, RN URINARY TRACT INFECTION 07/17/2025 Nurse Triage [facility] [address] [place] [phone] Nadine Rodrigues RN 0bladder issues 06/28/2025 Email Encounter [facility] Campaign, Provider Get Your Flu Vaccine Now 05/29/2025 Telephone [facility] [address] [phone] Franck Hoang, SKIN CARE INSTRUCTOR/ADVICE 05/27/2025 Telephone [facility] [address] [place] [phone] Ridge Henry RN Counseling and Coordination of Care (Primary Dx) 05/26/2025 Results Follow-Up [facility] [address] [place] [phone] Wandy Garcia NP URINE CULTURE, URINALYSIS MACROSCOPIC W/ REFLEX MICRO (PART OF PANEL 05/25/2025 4:20 PM EDT Office Visit [address] [phone] Wandy Garcia, MERNA Recurrent UTI (Primary Dx) 05/25/2025 Telephone [facility] [address] [phone] [facility], Im/Fm URINARY INCONTINENCE 05/14/2025 Letter (Out) [facility] [address] [place] [address] Campaign, Provider from Last 3 Months Immunizations Immunization Administration Dates Next Due COVID-19 (MODERNA) Vaccine, 50 mcg/0.5 mL, Bivalent, 12 YRS+ 07/16/2023 COVID-19 (PFIZER) Vaccine, 30mcg/0.3mL, 12YRS+, Diluent Reconstituted, IM 01/14/2022,01/14/2022,07/07/2021,2020,12/10/2020,11/19/2020 COVID-19 (PFIZER) Vaccine, 30mcg/0.3mL, 12YRS+, Pre-Mixed, IM 01/14/2022 Hep A Vaccine Adult 05/20/2022,07/07/2019 Influenza Vaccine 07/16/2014,07/24/2013 Influenza Vaccine (Unspecifi ed Formulation) 06/23/2019,04/24/2015,04/19/2015,2014,12/20/2014,09/02/2009,08/01/2008 Influenza Vaccine >= 36 Mos - [facility] 2010 Influenza Vaccine Preserv Fr ee High Dose, 0.5 mL, >/=65 YRS 07/20/2024,07/17/2021,07/17/2021,2017,07/23/2017,07/13/2016 Influenza Vaccine, 65YRS+, I nact Adjuvant, Single Dose Syringe, 0.5 mL (Seqirus Fluad) 07/11/2023,07/17/2021 Influenza Vaccine, 6MOS+, 0. 5mL, Multi Dose Vial, Split Virus 08/15/2012 Influenza Vaccine, High Dose Quadrivalent, 0.7 mL, >/=65 Yrs 09/18/2022,07/01/2020 Pneumococ/Adult-Polysac (PPSV23) 12/29/2007 Pneumococ/Conjugate (PCV13) 05/03/2017 Pneumococcal Conjugate (PCV20) 12/14/2022 TD Vaccine (Adult) 11/07/2018 TdaP 12/29/2007 Typhoid Vaccine (Unspecified Formulation) 05/20/2022 Zoster Live (Shingles) Vacci ne, Zostavax 06/27/2009 Surgical History Surgery Date Site/Laterality Comments BIOPSY THYROID NODULE COLONOSCOPY 2006 adenoma -> Dr. 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 A+W Other 2 2. 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 Not on file Not on file N ot on file Obstetrics History Last Filed Vital Signs Vital Sign Reading Time Taken Comments Blood Pressure 142/86 07/26/2025 11:27 AM EDT Pulse 89 07/26/2025 10:46 AM EDT Temperature 36.8 C (98.3 F) 04/17/2025 10:37 AM EDT Respiratory Rate 12 05/29/2021 2:30 PM EDT Oxygen Saturation 96% 07/26/2025 10:46 AM EDT Inhaled Oxygen Concentration - - Weight 47.2 kg (104 lb) 07/26/2025 10:46 AM EDT Height 152.4 cm (5') 08/13/2023 2:00 PM EDT Body Mass Index 20.31 08/13/2023 2:00 PM EDT Plan of Treatment Upcoming Encounters Date Type Department Care Team (Late st Contact Info) Description 08/21/2025 9:30 AM EST Office Visit [facility] [address] [place] [phone] Jorge Vazquez MD [address] [place] [phone] Health Maintenance Due Date Last Done Comments RSV Vaccine Adult (1 - 1-dose 75+ series) 2018 BONE DENSITY 04/17/2024 04/17/2021, 06/12, 05/21/2011 MAMMOGRAPHY: 1 YR 03/20/2025 03/20/2024, , 11/05/2021, Additional history exists COVID-19 Vaccine ( season) 2025 07/16/2023, 01/14/2022, 01/14/2022, Additional history exists COLORECTAL SCREENING : COLONOSCOPY 5 YEAR 12/05/2025 12/05/2020, 04/22/2015, 04/22/2015 (Performed outside [facility]), Additional history exists * LIPID PROFILE 12/09/2025 12/09/2024, 04/0 12/2023, 12/11/2022, Additional history exists * HEMOGLOBIN A1C (DM) 01/22/2026 07/24/2025 , 03/02/2025, 12/09/2024, Additional history exists * MICROALBUMIN 04/17/2026 04/17/2025, 03/11, 03/02/2025, Additional history exists * DIABETIC EYE EXAM 05/10/2026 05/10/2025, 05/04/2024 (Performed outside [facility]), 04/29/2023 (Performed outside [facility]), Additional history exists * KIDNEY DISEASE SCREEN-(CREATININE) 08/13/2026 08/13/2025, 07/24/2025, 03/21/2025, Additional history exists DTAP/TDAP/TD VACCINE (3 - Td or Tdap) 11/07/2028 11/07/2018, 12/29/2007 ZOSTER VACCINE Discontinued 06/27/2009 PERIODIC HEALTH REVIEW Discontinued 8, 05/03/2017, 01/08/2016, Additional history exists HEPATITIS A VACCINE Discontinued 05/20/2022, 9 PNEUMOCOCCAL VACCINE(S) 50+ Completed 12/14/2022, 05/03/2017, 12/29/2007 FLU SEASONAL Completed 07/26/2025, 07/11, 07/11/2023, Additional history exists HAEMOPHILUS INFLUENZA VACCINE Aged Out No longer eligible based on patient's age to complete this topic HEPATITIS B VACCINE Aged Out No longe r eligible based on patient's age to complete this topic POLIO VACCINE Aged Out No longer elig ible based on patient's age to complete this topic RSV Vaccine Infant//toddler Aged Out No longer eligible based on patient's age to complete this topic Procedures Procedure Name Priority Date/Time Associated Diagnosis Comments URINE CULTURE Routine 07/24/2025 11:57 AM EDT Recurrent UTI URINALYSIS MACROSCOPIC W/ REFLEX MICRO (PART OF PANEL Routine 07/24/2025 11:57 AM EDT Recurrent UTI URINALYSIS MACROSCOPIC W/ REFLEX MICRO (PART OF PANEL Routine 07/24/2025 11:57 AM EDT Recurrent UTI CMP Routine 07/24/2025 11:13 AM EDT Type 2 diabetes mellitus without complication, without long-term current use of insulin ([facility]) TSH W/REFLEX Routine 07/24/2025 11:13 AM EDT Thyroid nodule VITAMIN D 25-HYDROXY TOTAL ONLY Routine 07/24/2025 11:13 AM EDT Age related osteoporosis, unspecified pathological fracture presence COMPREHENSIVE METABOLIC PROFILE Routine 07/24/2025 11:13 AM EDT Type 2 diabetes mellitus without complication, without long-term current use of insulin ([facility]) HEMOGLOBIN A1C Routine 07/24/2025 11:13 AM EDT Type 2 diabetes mellitus without complication, without long-term current use of insulin ([facility]) URINE CULTURE Routine 05/25/2025 5:58 PM EDT Recurrent UTI URINALYSIS MACROSCOPIC W/ REFLEX MICRO (PART OF PANEL Routine 05/25/2025 5:58 PM EDT Recurrent UTI URINALYSIS MACROSCOPIC W/ REFLEX MICRO (PART OF PANEL Routine 05/25/2025 5:58 PM EDT Recurrent UTI URINE DIPSTICK (OFFICE TEST) Routine 05/25/2025 5:00 PM EDT Recurrent UTI OPHTHALMOLOGY / OPTOMETRY EXAM DONE ELSEWHERE 05/10/2025 MICROALBUMIN W/ CREATININE URINE Routine 04/17/2025 9:40 AM EDT Type 2 diabetes mellitus without complication, without long-term current use of insulin ([facility]) LIPID PROFILE Routine 12/09/2024 11:07 AM EST Type 2 diabetes mellitus with diabetic polyneuropathy, without long-term current use of insulin ([facility]) MAMMOGRAPHY SCREENING BILATERAL W/ TOMOSYNTHESIS 03/20/2024 BONE DENSITY STUDY 04/17/2021 COLONOSCOPY - POLYPECTOMY 12/05/2020 from Last 3 Months or Most Recently Relevant to Health Maintenance Results * (ABNORMAL) URINALYSIS MACROSCOPIC W/ REFLEX MICRO (PART OF PANEL (07/24/2025 11:57 AM EDT) COLOR (U) Yellow Yellow 07/24/2025 1:39 PM EDT [facility] DEPARTMENT OF PATHOLOGY AND LAB MEDICINE LEUKOCYTE ESTERASE (U) 1+(A) Negative 07/24/2025 1:39 PM EDT [facility] DEPARTMENT OF PATHOLOGY AND LAB MEDICINE NITRITE (U) Negative Negative 07/24/2025 1:39 PM EDT [facility] DEPARTMENT OF PATHOLOGY AND LAB MEDICINE PROTEIN QUAL (U) Negative Neg/Trace 07/24/20 1:39 PM EDT [facility] DEPARTMENT OF PATHOLOGY AND LAB MEDICINE PH (U) 6.0 5.0 - 9.0 07/24/2025 1:39 PM EDT [facility] DEPARTMENT OF PATHOLOGY AND LAB MEDICINE BLOOD (U) Negative Negative 07/24/2025 1:39 PM EDT [facility] DEPARTMENT OF PATHOLOGY AND LAB MEDICINE SPECIFIC GRAVITY (U) 1.010 1.001 - 1.035 07/24/2025 1:39 PM EDT [facility] DEPARTMENT OF PATHOLOGY AND LAB MEDICINE KETONE (U) Negative Negative 07/24/2025 1:39 PM EDT [facility] DEPARTMENT OF PATHOLOGY AND LAB MEDICINE UROBILINOGEN (U) <2.0 <2.0 mg/dL 07/24/20 1:39 PM EDT [facility] DEPARTMENT OF PATHOLOGY AND LAB MEDICINE BILIRUBIN (U) Negative Negative 07/24/2025 1:39 PM EDT [facility] DEPARTMENT OF PATHOLOGY AND LAB MEDICINE GLUCOSE QUAL (U) Negative Negative 07/24/20 1:39 PM EDT [facility] DEPARTMENT OF PATHOLOGY AND LAB MEDICINE WBC (U) 3-5 0-5 /HPF 07/24/2025 1:39 PM EDT [facility] DEPARTMENT OF PATHOLOGY AND LAB MEDICINE RBC (U) 0-2 0-5 /HPF 07/24/2025 1:39 PM EDT [facility] DEPARTMENT OF PATHOLOGY AND LAB MEDICINE SQUAMOUS EPITHELIAL CELLS (U) 1+(A) None Seen /HPF 07/24/2025 1:39 PM EDT [facility] DEPARTMENT OF PATHOLOGY AND LAB MEDICINE BACTERIA (U) Rare None Seen /HPF 07/24/2025 1:39 PM EDT [facility] DEPARTMENT OF PATHOLOGY AND LAB MEDICINE MUCOUS (U) Rare None Seen /HPF 07/24/2025 1:39 PM EDT [facility] DEPARTMENT OF PATHOLOGY AND LAB MEDICINE Was a culture reflexed? Yes 07/24/2025 1:39 PM EDT [facility] DEPARTMENT OF PATHOLOGY AND LAB MEDICINE Urine (URINE) Urine / Unknown 07/24/2025 11:57 AM EDT 07/24/2025 11:57 AM EDT Jorge Vazquez LAB URINE ORDERABLES Final Resul t [facility] DEPARTMENT OF PATHOLOGY AND LAB MEDICINE [address] [place] [address] * URINE CULTURE (07/24/2025 11:57 AM EDT) Only the most recent of2 resultswithin the time period is included. CULTURE, URINE 10,000-100,00 0 cfu/ml Mixed Gram Positive & Negative Organisms 07/26/2025 8:20 AM EDT [facility] DEPARTMENT OF PATHOLOGY AND LAB MEDICINE Urine (URINE) Urine / Unknown 07/24/2025 11:57 AM EDT 07/24/2025 11:57 AM EDT Narrative [facility] DEPARTMENT OF PATHOLOGY AND LAB MEDICINE - 07/26/2025 8:20 AM EDT No predominant organism was identified. Suggest repeat specimen if there is continued concern for UTI. Jorge Vazquez MICROBIOLOGY LAB Final Result [facility] DEPARTMENT OF PATHOLOGY AND LAB MEDICINE [address] [place] [address] * (ABNORMAL) CMP (07/24/2025 11:13 AM EDT) GLUCOSE 120 65 - 139 mg/dL 07/24/2025 2:18 PM EDT [facility] DEPARTMENT OF PATHOLOGY AND LAB MEDICINE FASTING STATUS Unknown 07/24/2025 2:18 PM EDT [facility] LAB SODIUM 133(L) 134 - 146 mmol/L 07/24/2025 2:18 PM EDT [facility] DEPARTMENT OF PATHOLOGY AND LAB MEDICINE POTASSIUM 4.7 3.3 - 5.3 mmol/L 07/24/2025 2:18 PM EDT [facility] DEPARTMENT OF PATHOLOGY AND LAB MEDICINE CHLORIDE 95(L) 98 - 110 mmol/L 07/24/2025 2:18 PM EDT [facility] DEPARTMENT OF PATHOLOGY AND LAB MEDICINE CARBON DIOXIDE 27.0 21 - 33 mmol/L 07/24/2025 2:18 PM EDT [facility] DEPARTMENT OF PATHOLOGY AND LAB MEDICINE CREATININE 0.93 0.50 - 1.20 mg/dL 07/24/2025 2:18 PM EDT [facility] DEPARTMENT OF PATHOLOGY AND LAB MEDICINE BUN 26 7 - 30 mg/dL 07/24/2025 2:18 PM EDT [facility] DEPARTMENT OF PATHOLOGY AND LAB MEDICINE CALCIUM 10.5 8.8 - 10.6 mg/dL 07/24/2025 2:18 PM EDT [facility] DEPARTMENT OF PATHOLOGY AND LAB MEDICINE ALBUMIN 4.8 3.2 - 5.1 g/dL 07/24/2025 2:18 PM EDT [facility] DEPARTMENT OF PATHOLOGY AND LAB MEDICINE ALKALINE PHOSPHATASE 44 38 - 125 U/L 07/24/2025 2:18 PM EDT [facility] DEPARTMENT OF PATHOLOGY AND LAB MEDICINE SGOT (AST) 20 3 - 35 U/L 07/24/2025 2:18 PM EDT [facility] DEPARTMENT OF PATHOLOGY AND LAB MEDICINE SGPT (ALT) 21 3 - 40 U/L 07/24/2025 2:18 PM EDT [facility] DEPARTMENT OF PATHOLOGY AND LAB MEDICINE BILIRUBIN TOTAL 0.5 0.1 - 1.3 mg/dL 07/24/2025 2:18 PM EDT [facility] DEPARTMENT OF PATHOLOGY AND LAB MEDICINE TOTAL PROTEIN 7.9 6.0 - 8.9 g/dL 07/24/2025 2:18 PM EDT [facility] DEPARTMENT OF PATHOLOGY AND LAB MEDICINE eGFR 62 >60 07/24/2025 2:18 PM EDT [facility] OF PATHOLOGY AND LAB MEDICINE Comment: The estimated glomerular filtration rate (eGFR) is now being calculated using a new formula developed by the NKF-ASN task force to eliminate the use of race-based correction factors. The new formula uses serum/plasma creatinine, age, and gender to determine eGFR. eGFR will only be reported if it is <120 mls/min. This value should be interpreted as an estimate of true GFR and maybe more clinically relevant if there is a trend. A value below 60mls/min might indicate kidney disease. For additional information, see Sabine et al, AJKD, A Unifying Approach for GFR estimation: Recommendations of the NKF-ASN Task Force on Reassessing the Inclusion of Race in Diagnosing Kidney Disease . New reporting of Quantitative EGFR up to 120 to be used for implementation of AHA PREVENT model for ASCVD risk prediction. Blood (Blood, Venous) Venipuncture / Unknown 07/24/2025 11:13 AM EDT 07/24/2025 11:13 AM EDT Jorge Vazquez GENERAL LAB Final Result [facility] [address] [place] [address] [facility] [place] [facility] [address] [place] [address] * VITAMIN D 25-HYDROXY TOTAL ONLY (07/24/2025 11:13 AM EDT) VITAMIN D,25-OH,TOTAL 58 ng/mL 07/24/2025 2:40 PM EDT [facility] Comment: Optimal: 30-60 ng/mL Interpretation Deficient <20 Insufficient 20 - 29 Optimal 30 - 60 Above target 61-99 Toxic >99 Total 25OH Vitamin D concentration is determined by competitive binding chemiluminescent immunoassay using Apportable DxI 800 Immunoassay system. Blood (Blood, Venous) Venipuncture / Unknown 07/24/2025 11:13 AM EDT 07/24/2025 11:13 AM EDT us Jorge Vazquez GENERAL LAB Final Result Performing Organization Address [facility] Co de Phone Number [facility] [address] [place] [phone] * TSH W/REFLEX (07/24/2025 11:13 AM EDT) TSH 1.00 0.28 - 4.10 mlU/L 07/24/2025 2:40 PM EDT [facility] Blood (Blood, Venous) Venipuncture / Unknown 07/24/2025 11:13 AM EDT 07/24/2025 11:13 AM EDT Jorge Vazquez GENERAL LAB Final Result Performing Organization Address [facility] de Phone Number [facility] [address] [place] [phone] * (ABNORMAL) HEMOGLOBIN A1C (07/24/2025 11:13 AM EDT) HEMOGLOBIN A1C 7.3(H) <5.7 % 07/24/2025 3:34 PM EDT [facility] Comment: Non-Diabetic Reference Range <5.7% Pre-Diabetic Reference Range 5.7% - 6.4% Diabetic Reference Range >6.4% The [place] [employer] recommends that the goal of therapy should be a hemoglobin A1C of < 7.0% and that physicians should reevaluate the treatment regimen in patients with hemoglobin A1C values consistently > 8.0%. ESTIMATED AVERAGE GLUCOSE 163 mg/dL 07/24/2025 3:34 PM EDT [facility] Comment: Estimated Average Glucose A1C(%) mg/dl (95% CI) 5 97 (76-120) 6 126 (100-152) 7 154 (123-185) 8 183 (147-217) 9 212 (170-249) 10 240 (193-282) 11 269 (217-314) 12 298 (240-347) Based on the ADAG formula: eAG = (28.7 X A1c) - 46.7 with the 95% confidence interval as reported in: Vipul ROJAS et al, Diabetes Care, 2008, 31(8);1476 Blood (Blood, Venous) Venipuncture / Unknown 07/24/2025 11:13 AM EDT 07/24/2025 11:13 AM EDT Jorge Vazquez GENERAL LAB Final Result [facility] DEPARTMENT OF PATHOLOGY AND LAB MEDICINE [address] [place] [address] * (ABNORMAL) URINALYSIS MACROSCOPIC W/ REFLEX MICRO (PART OF PANEL (05/25/2025 5:58 PM EDT) COLOR (U) Yellow Yellow 05/25/2025 8:01 PM EDT [facility] DEPARTMENT OF PATHOLOGY AND LAB MEDICINE LEUKOCYTE ESTERASE (U) 3+(A) Negative 05/25/2025 8:01 PM EDT [facility] DEPARTMENT OF PATHOLOGY AND LAB MEDICINE NITRITE (U) Negative Negative 05/25/2025 8:01 PM EDT [facility] DEPARTMENT OF PATHOLOGY AND LAB MEDICINE PROTEIN QUAL (U) Trace Neg/Trace 05/25/20 8:01 PM EDT [facility] DEPARTMENT OF PATHOLOGY AND LAB MEDICINE PH (U) 6.0 5.0 - 9.0 05/25/2025 8:01 PM EDT [facility] DEPARTMENT OF PATHOLOGY AND LAB MEDICINE BLOOD (U) Trace(A) Negative 05/25/2025 8:01 PM EDT [facility] DEPARTMENT OF PATHOLOGY AND LAB MEDICINE SPECIFIC GRAVITY (U) 1.015 1.001 - 1.035 05/25/2025 8:01 PM EDT [facility] DEPARTMENT OF PATHOLOGY AND LAB MEDICINE KETONE (U) Negative Negative 05/25/2025 8:01 PM EDT [facility] DEPARTMENT OF PATHOLOGY AND LAB MEDICINE UROBILINOGEN (U) <2.0 <2.0 mg/dL 05/25/20 8:01 PM EDT [facility] DEPARTMENT OF PATHOLOGY AND LAB MEDICINE BILIRUBIN (U) Negative Negative 05/25/2025 8:01 PM EDT [facility] DEPARTMENT OF PATHOLOGY AND LAB MEDICINE GLUCOSE QUAL (U) Negative Negative 05/25/20 25 8:01 PM EDT [facility] DEPARTMENT OF PATHOLOGY AND LAB MEDICINE WBC (U) >100(A) 0-5 /HPF 05/25/2025 8:01 PM EDT [facility] DEPARTMENT OF PATHOLOGY AND LAB MEDICINE RBC (U) 6-10(A) 0-5 /HPF 05/25/2025 8:01 PM EDT [facility] DEPARTMENT OF PATHOLOGY AND LAB MEDICINE SQUAMOUS EPITHELIAL CELLS (U) 1+(A) None Seen /HPF 05/25/2025 8:01 PM EDT [facility] DEPARTMENT OF PATHOLOGY AND LAB MEDICINE BACTERIA (U) 3+(A) None Seen /HPF 05/25/2025 8:01 PM EDT [facility] DEPARTMENT OF PATHOLOGY AND LAB MEDICINE MUCOUS (U) Rare None Seen /HPF 05/25/2025 8:01 PM EDT [facility] DEPARTMENT OF PATHOLOGY AND LAB MEDICINE Urine (URINE) Urine / Unknown 05/25/2025 5:58 PM EDT 05/25/2025 5:58 PM EDT us Wandy Garcia LAB URINE ORDERABLES Final R esult [facility] [address] [place] [address] * (ABNORMAL) URINE DIPSTICK (OFFICE TEST) (05/25/2025 5:00 PM EDT) GLUCOSE QUAL (U) Negative Negative BILIRUBIN (U) Negative Negative KETONE (U) Negative Negative SPECIFIC GRAVITY (U) 1.015 1.005 - 1.030 BLOOD (U) 1+(A) Negative PH (U) 5.5 5.0 - 9.0 PROTEIN QUAL (U) Trace Neg/Trace UROBILINOGEN (U) 0.2 <2.0 mg/dL NITRITE (U) Positive(A) Negative LEUKOCYTE ESTERASE (U) 3+(A) Negative Urine 05/25/2025 5:00 PM EDT us Wandy Garcia CLINICAL UNIT LAB TESTING Fi nal Result * OPHTHALMOLOGY / OPTOMETRY EXAM DONE ELSEWHERE (05/10/2025) 05/10/2025 us Outside Provider CLINICAL / NON-BILLABLE Final R esult * (ABNORMAL) MICROALBUMIN W/ CREATININE URINE (04/17/2025 9:40 AM EDT) MICROALBUMIN (U) 7.7(H) 0.0 - 1.8 mg/dL 04/17/2025 11:59 AM EDT [facility] DEPARTMENT OF PATHOLOGY AND LAB MEDICINE CREATININE MG/DL (U) 91.50 20.00 - 320.00 mg/dL 04/17/2025 11:59 AM EDT [facility] DEPARTMENT OF PATHOLOGY AND LAB MEDICINE MICROALBUMIN/CREA TININE RATIO 84.2(H) 0.0 - 29.9 mcg/mg 04/17/2025 11:59 AM EDT [facility] DEPARTMENT OF PATHOLOGY AND LAB MEDICINE Comment: The ADA (Diabetes Care 26; S94-S98, 2003)defines abnormalities in albumin excretion as follows: Category Result (mcg/mg creatinine) Normal <30 Microalbuminuria 30-299 Clinical albuminuria > or =300 The ADA recommends that two of three specimens collected within 3-6 month period be abnormal before considering a patient to be within a diagnostic category. Urine Urine / Unknown 04/17/2025 9 :40 AM EDT 04/17/2025 9:40 AM EDT us Jorge Vazquez LAB URINE ORDERABLES Final Resul t [facility] DEPARTMENT OF PATHOLOGY AND LAB MEDICINE [address] [place] [address] * (ABNORMAL) LIPID PROFILE (12/09/2024 11:07 AM EST) CHOLESTEROL 125 <=199 mg/dL 12/09/2024 2:06 PM EST [facility] DEPARTMENT OF PATHOLOGY AND LAB MEDICINE HDL 52 >=41 mg/dL 12/09/2024 2:06 PM EST [facility] DEPARTMENT OF PATHOLOGY AND LAB MEDICINE CHOL/HDL RATIO 2.4 <=4.9 12/09/2024 2:06 PM EST [facility] DEPARTMENT OF PATHOLOGY AND LAB MEDICINE LDL 38.6 <=130 mg/dL 12/09/2024 2:06 PM EST [facility] DEPARTMENT OF PATHOLOGY AND LAB MEDICINE TRIGLYCERIDES 172(H) <=149 mg/dL 12/09/2024 2:06 PM EST [facility] DEPARTMENT OF PATHOLOGY AND LAB MEDICINE FASTING STATUS Random 12/09/2024 2:06 PM EST [facility] DEPARTMENT OF PATHOLOGY AND LAB MEDICINE Blood (Blood, Venous) Venipuncture / Unknown 12/09/2024 11:07 AM EST 12/09/2024 11:07 AM EST Jorge Vazquez GENERAL LAB Final Result [facility] DEPARTMENT OF PATHOLOGY AND LAB MEDICINE [address] [place] [address] * MAMMOGRAPHY SCREENING BILATERAL W/ TOMOSYNTHESIS (03/20/2024) Anatomical Region Laterality Modality Breast Bilateral Other 03/20/2024 us Jorge DAVIS MAMMOGRAPHY Final Result * BONE DENSITY STUDY (04/17/2021) Anatomical Region Laterality Modality Bone Density Other 04/17/2021 us Jorge DAVIS BONE DENSITY Final Result * COLONOSCOPY - POLYPECTOMY (12/05/2020) 12/05/2020 us Jorge Vazquez PROCEDURES Final Result from Last 3 Months or Most Recently Relevant to Health Maintenance Insurance [employer] MEDICARE Advance Directives Documents on File Type Date Recorded Patient Clearance Center Manager Expl anation Health Care Proxy 09/11/2013 8:29 AM HEALT H CARE PROXY 09/06/13 MOLST 04/02/2025 1:47 PM MOLST Health Care Proxy 03/04/2021 4:05 PM Healt h Care Proxy * DNR (Latest Code Status on File) Date Activated Date Inactivated Comments 04/02/2025 1:44 PM Care Teams Brain Picker Relationship Specialty Start Date End Date Jorge Vazquez MD [address] [place] [address] PCP - General 05/25/03 Lisa [place] Pa-C [address] [place] [address] Primary Care [facility] Internal [facility] 08/13/23
--- OUTSIDE RECORDS SUMMARY | 2025-08-14 18:13 | XMS_ITS | Encounter Summary ---
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 Hospital wants to Section 12 patient and he does not understand whatthat means . Asking for a call. [phone] * Telephone Encounter - Nadine Rodrigues RN - 08/14/2025 9:31 AM EST Live call transferred to RN Patient's daughter, Tracey and son, Raúl calling Patient has been placed on a section 12 hold [facility] Son aware that there isn't anything that he can do now that patient has been sectioned Sending to PCP as JULIAN Morales. CESAR Rodrigues * Telephone Encounter - Joanna Pandya PSR - 08/14/2025 9:28 AM EST Pts daughter Tracey (has auth) asking to speak with a nurse right now [phone] * Telephone Encounter - Lorene Valadez PSR - 08/14/2025 8:56 AM EST This call from son Raúl, says mother is still at [facility] ER. He says they want to send her to a cha psych [facility] in [facility] which he feels is a bad option Hoping to get guidance from PCP office as to what else can be done for her. * Telephone Encounter - Franck Hoang RN - 08/13/2025 4:21 PM EST Per Jorge Vazquez MD Call Tracey and tell her I'll review the hosp records while she's there but if really lost consciousness and confused we should push for clarity of the cause of passing out and confusion before she gets d/c'd---may need placement for at least rehab. Tracey called and informed of same. She agrees with plan Pt is going to be admitted overnight, to have a psych eval Tracey will cb prn. * Telephone Encounter - Franck Hoang RN - 08/13/2025 3:52 PM EST Pt's daughter Tracey called Pt lives in an apartment condo by herself Per Tracey, she lives in [place] and her brother Raúl checks in with pt at home Per Tracey, Raúl has his own medical conditions and unable to stay with pt He was going to take pt to [facility] today to look at an apartment prior to her episode Pt had been waiting for Raúl to pick her up at 10am She had been sitting waiting since 8am She has been having increased confusion over the past couple of weeks or so Per Tracey thinks she has to take care of her niece and that her is still alive Her ex had been for 17 years and her niece is well. While on the way in the car, Pt lost consciousness for approx 5-10 min Raúl drove her to [facility] ER where she was evaluated for change in MS Pt was going to be d/c home today advised to f/u with neuro and pcp Per iLz pt is still there now ? going to be admitted overnight Tracey is going to fly here from [place] tomorrow early pm Tracey enc to speak with the CM at [facility] re discharge home and ? Need for placement/VNA services if her brother is not able to care for pt at home safely She agrees with plan Enc tcb here for f/u appt once pt is d/c home Message to Jorge Vazquez MD re same. * Telephone Encounter - Tami Brown PSR - 08/13/2025 2:16 PM EST Pt's son Raúl, verbal on file, calling on status states to call Tracey [phone]. documented in this encounter Plan of Treatment Upcoming Encounters Date Type Department Care Team (Late st Contact Info) Description 08/21/2025 9:30 AM EST Office Visit [facility] [address] [facility] [place] [address] Jorge Vazquez MD [address] [facility] [address] documented as of this encounter Visit Diagnoses Diagnosis Altered mental status, unspecified altered mental status type- Primary documented in this encounter Care Teams Barn Manager Relationship Specialty Start Date End Date Jorge Vazquez MD [address] [facility] [place] [phone] PCP - General 05/25/03 Lisa [place] [facility] [place] [address] Primary Care [facility] Internal [facility] 08/13/23 documented as of this encounter
--- OUTSIDE RECORDS SUMMARY | 2025-08-14 18:13 | XMS_ITS | Encounter Summary ---
Author Organization [facility] Address [address] [place] [address] [place] [address] Care Team Providers Care Hearing Aid Assistant Name Role Phone Jorge Vazquez Md Primary Care Provider Lisa Wells Pa-C Unavailable Jorge Vazquez Md Unavailable Reason for Visit * Reason Comments states UTI Encounter Details Date Type Department Care Team (Late st Contact Info) Description 02/28/2020 Telephone [place] [address] [place] [address] Jorge Vazquez MD [address] [place] [address] 0states UTI Social History Tobacco Use Types Packs/Day Years [...] Start Date Job End Date 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 Unable to assess 02/28/2020 2:13 PM EDT documented as of this encounter Miscellaneous Notes * Telephone Encounter - Yaa Sandoval - 02/28/2020 11:32 AM EDT Patient states that she has a UTI and has been having these symptoms for about (10) days because she did not want to bother anyone She explains she is having frequency, pressure, stinging with urination. She states she has herself locked into her apt. And even when the doorbell rings she puts on a mask. Requesting some thing please be called into her [facility] please. documented in this encounter Plan of Treatment Upcoming Encounters Date Type Department Care Team (Late st Contact Info) Description 08/21/2025 9:30 AM EST Office Visit [facility] [address] [place] [address] Jorge Vazquez MD [address] [place] [address] documented as of this encounter Visit Diagnoses Not on filedocumented in this encounter Care Teams Hearing Aid Assistant Relationship Specialty Start Date End Date Jorge Vazquez MD [address] [place] [address] PCP - General 05/25/03 Jorge Vazquez MD [address] [place] [address] PCP - MSSP Attributed PCP 10/11/2405/13 Lisa Wells Pa-C [address] [place] [address] Primary Care [facility] 08/13/23 documented as of this encounter
--- OUTSIDE RECORDS SUMMARY | 2025-08-14 18:14 | XMS_ITS | Clinical Summary ---
Author Organization [facility] Address [address] [place] [address] Care Team Providers Care Medical Assembly Name Role Phone Jorge Vazquez MD Primary Care Provider Jorge Vazquez MD Unavailable Jorge Vazquez MD Unavailable Allergies Active Allergy Reactions Criticality Noted Date Comments Ciprofloxacin Diarrhea 01/21/2010 Loose stools, pt can tolerate if she has to Sulfa (Sulfonamide Antibiotics) Swelling 02/21/2007 Facial and eye swelling Medications aspirin 81 MG EC tablet Take by mouth. 6 Active cholecalciferol (VITAMIN D3) 1,000 unit tablet Take by mouth. 8 Active cyanocobalamin, vitamin B-12, 1,000 mcg TbER Take 1 mg by mouth. 0 Active famotidine (PEPCID) 20 MG tablet 1 Active metFORMIN (GLUCOPHAGE) 500 MG tablet TAKE 2 TABLETS BY MOUTH TWICE A DAY WITH MEALS 1 Active simvastatin (ZOCOR) 10 MG tablet TAKE 1 TABLET BY MOUTH EVERY DAY IN THE EVENING FOR CHOLESTEROL 1 Active VESICARE 10 mg tablet 1 Active Active Problems Problem Noted Date Diagnosed Date LLQ abdominal pain 05/30/2021 Weight loss 05/30/2021 Encounters Date Type Department Care Team Description 08/13/2025 10:15 AM EST - 08/14/2025 11:30 AM EST Emergency [place] [facility] [address] [facility] [address] [place] [address] Domingo Abdullahi MD Chabot, Donald R, MD Wright, Norah M, MD Dementia with behavioral disturbance (CMS-HCC) (Primary Dx); Transient alteration of awareness; Dementia without behavioral disturbance (CMS-HCC) [F03.90] Discharge Disposition: [facility] 08/13/2025 Travel from Last 3 Months Social History Tobacco Use Types Packs/Day Years [...] any time in the past 12 m [facility], were you homeless or living in a assisted (including now)? No 08/13/2025 [facility] Utilities Answer Date Recorded In the [...] PM EDT Sexual Orientation Not on file Last Filed Vital Signs Vital Sign Reading [...] Mass Index 20.12 08/13/2025 12:49 PM EST Plan of Treatment Health Maintenance Due Date Last Done Comments Medicare Initial AWV [id number] 10/11/1901 Depression Screening 1949 Zoster Vaccine (2 of 3) 08/22/2009 06/27/2009 COVID-19 Vaccine ( season) 2025 01/14/2022, 01/14/2022, 07/07/2021, Additional history exists Influenza Vaccine (#1) 2025 , 07/11/2023, 09/18/2022, Additional history exists Lipid Panel 12/09/2025 12/09/2024, 03/0 10/2024, 01/12/2024, Additional history exists Hemoglobin A1c 01/22/2026 07/24/2025, 07/11, 03/02/2025, Additional history exists Urine Microalbumin 04/17/2026 04/17/2025, 0 04/17/2025, 03/21/2025, Additional history exists Blood Pressure 08/13/2026 08/14/2025 DTaP,Tdap,and Td Vaccines (4 - Td or Tdap) 11/07/2028 11/07/2018, 11/07/2018, 12/29/2007 Pneumococcal Vaccine: 50+ Years Completed 12/14/2022, 05/03/2017, 12/29/2007 Breast Cancer Screening Discontinued 03/20/20, 12/14/2018, 06/05/2015, Additional history exists Meningococcal B Vaccines Aged Out No longer eligible based on patient's age to complete this topic Meningococcal Vaccines Aged Out No lo nger eligible based on patient's age to complete [...] ECG 12-LEAD STAT 08/13/2025 10:23 AM EST RAINBOW DRAW STAT 08/13/2025 10:23 AM EST RAINBOW DRAW STAT 08/13/2025 10:23 AM EST CBC AND DIFFERENTIAL STAT 08/13/2025 10:23 AM EST TYPE AND SCREEN STAT 08/13/2025 10:23 AM EST TOXICOLOGY SCREEN, BLOOD STAT 08/13/2025 10:23 AM EST PROTIME-INR Routine 08/13/2025 10:23 AM EST LACTIC ACID WITH REFLEX Routine 08/13/2025 10:23 AM EST TROPONIN (ALL) Routine 08/13/2025 10:23 AM EST MINT GREEN TOP STAT 08/13/2025 10:23 AM EST YELLOW TOP STAT 08/13/2025 10:23 AM EST LIGHT BLUE TOP STAT 08/13/2025 10:23 AM EST CBC AND DIFFERENTIAL STAT 08/13/2025 10:23 AM EST COMPREHENSIVE METABOLIC PANEL STAT 08/13/2025 10:23 AM EST POCI GLUCOSE Routine 08/13/2025 10:16 AM EST from Last 3 Months Results * Troponin (08/13/2025 12:49 PM EST) Only the most recent of2 resultswithin the time period is included. Pathologist [facility] Troponin I 0.02 <=0.08 ng/mL 08/13/2025 1:17 PM EST [facility] Blood PERIPHERAL BLOOD SPECIMEN / Unknown Venipuncture / Unknown 08/13/2025 12:49 PM EST 08/13/2025 12:54 PM EST Mery Pena MD LAB BLOOD ORDERABLES Final Result [facility] [address] [id number] * (ABNORMAL) Urinalysis Chemistries (08/13/2025 11:45 AM EST) Pathologist [facility] Color, Urine Colorless Colorless, Light yellow, Yellow 08/13/2025 11:52 AM EST [facility] Clarity, Urine Clear Clear 08/13/2025 11:52 AM EST [facility] pH, Urine 6.5 5.0 - 9.0 08/13/2025 11:52 AM EST [facility] Glucose, Urine 30 mg/dL(A) Negative 08/13/2025 11:52 AM EST [facility] Protein, Urine Negative Negative, 10 mg/dL, 20 mg/dL 08/13/2025 11:52 AM EST [facility] Ketones, Urine Negative Negative 08/13/2025 11:52 AM EST [facility] Blood, Urine Negative Negative 08/13/2025 11:52 AM EST [facility] Nitrite Negative Negative 08/13/2025 11:52 AM EST [facility] Leukocyte Esterase, Urine Negative Negative, Trace 08/13/2025 11:52 AM EST [facility] Specific [place], Urine >1.050(H) 1.001 - 1.035 08/13/2025 11:52 AM EST [facility] Urine MID-STREAM URINE SPECIMEN / Unknown Collection / Unknown 08/13/2025 11:45 AM EST 08/13/2025 11:46 AM EST Domingo Abdullahi MD URINE ORDERABLES Final Result [facility] [place] [address] * Drug Screen, Urine (08/13/2025 11:45 AM EST) 6-Aceytlmorphine Screen, Urine Negative Negative 08/13/2025 3:06 PM [facility] Comment:Add on order [id number] Opiates and Oxycodone, Urine, Confirmation, if confirmation desired. Amphetamines Screen, Urine Negative Negative 08/13/2025 3:06 PM [facility] Comment: Screen for Amphetamine, Metamphetamine or other Amphetamine-like compounds. Add-on order [id number] Amphetamine, Urine, Confirmation if confirmation desired. Barbiturates Screen, Urine Negative Negative 08/13/2025 3:06 PM [facility] Comment:Add-on order [id number] Barbiturate, Urine, Confirmation if confirmation desired. Benzodiazepine Screen, Urine Negative Negative 08/13/2025 3:06 PM [facility] Comment: Add-on order [id number] Benzodiazepine, Urine, Confirmation if confirmation desired. Buprenorphine Screen, Urine Negative Negative 08/13/2025 3:06 PM [facility] Comment:Add-on order [id number] Buprenorphine, Urine, Confirmation if confirmation desired. Cannabinoids Screen, Urine Negative Negative 08/13/2025 3:06 PM [facility] Comment:Add-on order [id number] Cannabinoids, Urine, if confirmation desired. Cocaine Metabolite Screen, Urine Negative Negative 08/13/2025 3:06 PM [facility] Comment:Add-on order [id number] Cocaine, Urine, Confirmation if confirmation desired. Ethanol Screen, Urine Negative Negative 08/13/2025 3:06 PM [facility] Fentanyl Screen, Urine Negative Negative 08/13/2025 3:06 PM [facility] Comment:Add-on order [id number] Fentanyl Confirmation, Urine, if confirmation desired. Methadone Screen, Urine Negative Negative 08/13/2025 3:06 PM [facility] Comment:Add order [id number] Me thadone, Urine, Confirmation if confirmation desired. Opiates Screen, Urine Negative Negative 08/13/2025 3:06 PM [facility] Comment: Screen for Morphine, Codeine, Hyrdocodone, Hydromorphone, or other Morphine- related opiates. Add on order [id number] Opiates and Oxycodone, Urine, Confirmation if confirmation desired. Oxycodone Screen, Urine Negative Negative 08/13/2025 3:06 PM [facility] Comment:Add-on order [id number] Opiates and Oxycodone, Urine, Confirmation if confirmation desired. Tramadol Screen, Urine Negative Negative 08/13/2025 3:06 PM [facility] Comment:Add-on order [id number] Tramadol Confirmation, Urine, if confirmation desired. Creatinine, Carlos Urine 39.0 >=15 mg/dL 08/13/2025 3:06 PM [facility] Urine URINE SPECIMEN / Unknown Collection / Unknown 08/13/2025 11:45 AM [facility] 08/13/2025 11:46 AM [facility] - 08/13/2025 3:06 PM [facility] These tests are for screening purposes only and should only be used for medical purposes. The cutoff concentrations for determining a positive result are as follows: 6-Acetylmorphine 10 ng/mL 6-acetylmorphine Amphetamines 1000 ng/mL d-methamphetamine Barbiturates 200 ng/mL secobarbital Benzodiazepines 200 ng/mL oxazepam Buprenorphine 5 ng/mL buprenorphine Cannabinoids 50 ng/mL 58-exl-ujrzm 4-VWX-6-carboxylic acid Cocaine 300 ng/mL benzoylecgonine Ethanol 20 mg/dL ethanol Fentanyl 1 ng/mL fentanyl Methadone 300 ng/mL methadone Opiates 300 ng/mL morphine Oxycodone 100 ng/mL oxycodone Tramadol 200 ng/mL tramadol False negative and false positive results may occur due to cross-reactivity, patient medications or sample adulteration. If the validity of these results is uncertain, confirmatory testing can be done upon specific request. Mery Pena MD URINE ORDERABLES Final Resu lt Performing Organization Address City/[facility]/[place] [address] * (ABNORMAL) Urinalysis with Reflex to Urine Culture (08/13/2025 11:45 AM EST) Color, Urine Yellow Colorless, Straw, Yellow 08/13/2025 3:29 PM [facility] Clarity, Urine Clear Clear 08/13/2025 3:29 PM [facility] pH, Urine 6.5 5.0 - 7.0 08/13/2025 3:29 PM [facility] Protein, Urine Negative Negative 08/13/2025 3:29 PM [facility] Glucose, Urine Negative Negative 08/13/2025 3:29 PM [facility] Ketone, Urine Negative Negative 08/13/2025 3:29 PM [facility] Blood, Urine Negative Negative 08/13/2025 3:29 PM [facility] Leukocyte Esterase, Urine Trace(A) Negative 08/13/2025 3:29 PM [facility] Nitrite, Urine Negative Negative 08/13/2025 3:29 PM [facility] Specific [place], Urine >1.050(H) 1.001 - 1.035 08/13/2025 3:29 PM [facility] White Blood Cells, Urine <3 <=4 /hpf 08/13/2025 3:29 PM [facility] Red Blood Cells, Urine 1 <=2 /hpf 08/13/2025 3:29 PM [facility] Bacteria Urine Negative Negative 08/13/2025 3:29 PM [facility] Hyaline Cast <10 <=10 /lpf 08/13/2025 3:29 PM [facility] Urine MID-STREAM URINE SPECIMEN / Unknown Collection / Unknown 08/13/2025 11:45 AM EST 08/13/2025 11:46 AM EST Domingo Abdullahi MD URINE ORDERABLES Final Result Performing Organization Address City/[facility]/ZIP Co de Phone Number [address] [phone] * CT Angiogram Head Neck Code Stroke [...] Reported dictated by Hay Jasso MD, Diagnostic [facility]. EXAM DESCRIPTION: CTA head and neck TECHNIQUE: Arterial phase CTA head and neck with immediate delayed imaging. Post processed images can include coronal and sagittal, curved and volume rendered reformatted images. CT perfusion of the brain with IV contrast Extra Series: None. Contrast administered: Intravenous: 120 mL IOHEXOL 350 MG IODINE/ML INTRAVENOUS SOLUTION. COMPARISON: CT HEAD CODE STROKE WO CONTRAST, ACC: [id number], dated 2025-08-13 10:52:06 INDICATION: Code stroke FINDINGS: [...] Reported dictated by Hay Jasso MD, Diagnostic [facility]. EXAM DESCRIPTION: CTA head and neck TECHNIQUE: Arterial phase CTA head and neck with immediate delayed imaging. Postprocessed images can include coronal and sagittal, curved and volumerendered reformatted images. CT perfusion of the brain with IV contrast Extra Series: None. Contrast administered: Intravenous: 120 mL IOHEXOL 350 MG IODINE/ML INTRAVENOUS SOLUTION. COMPARISON: CT HEAD CODE STROKE WO CONTRAST, ACC: [id number], dated :52:06 INDICATION: Code stroke FINDINGS: CT [...] and edited the abovedictation. Mery Pena MD [facility] CT ORDERABLES Final Res ult * CT [...] Abdullahi at 10:59 a.m. August 13, 2025. Mery Pena MD IMG CT ORDERABLES Final Res ult * XR Chest 1 Vw Portable (08/13/2025 10:46 AM EST) Anatomical Region Laterality Modality Chest Digital Radiogra phy 08/13/2025 10:5 2 AM EST Impressions 08/13/2025 10:49 AM EST No acute cardiopulmonary abnormality. Narrative 08/13/2025 10:49 AM EST EXAM DESCRIPTION: XR CHEST 1 VW PORTABLE TECHNIQUE: XR CHEST 1 VW PORTABLE COMPARISON: CT ABDOMEN PELVIS W CONTRAST, ACC: [id number], dated 2024-08-04 14:52:50; CT ABDOMEN AND PELVIS W CONTRAST, ACC: [id number], dated 2021-06-25 08:05:35 INDICATION: AMS FINDINGS: LINES/TUBES/DEVICES: None. LUNGS/PLEURA: No focal consolidation. No pleural effusion. No pneumothorax. HEART AND MEDIASTINUM: Normal cardiomediastinal silhouette. OSSEOUS/OTHER: Degenerative changes of the spine. Procedure Note Kylie Lundberg MD - 08/13/2025 EXAM DESCRIPTION: XR CHEST 1 VW PORTABLE TECHNIQUE: XR CHEST 1 VW PORTABLE COMPARISON: CT ABDOMEN PELVIS W CONTRAST, ACC: [id number], dated :52:50; CT ABDOMEN AND PELVIS W CONTRAST, ACC: [id number], dated 1941-07-8993:05:35 INDICATION: AMS FINDINGS: LINES/TUBES/DEVICES: None. LUNGS/PLEURA: No focal consolidation. No pleural effusion. Nopneumothorax. HEART AND MEDIASTINUM: Normal cardiomediastinal silhouette. OSSEOUS/OTHER: Degenerative changes of the spine. IMPRESSION: No acute cardiopulmonary abnormality. Mery Pena MD [facility]G DIAGNOSTIC IMAGING ORDYessi KIRBY Final Result * BB Retype (08/13/2025 10:35 AM EST) BB RETYPE Received 08/13/2025 12:37 PM EST [facility] Blood Venipuncture / Unknown 08/13/2025 10:35 AM EST 08/13/2025 10:37 AM EST Domingo Abdullahi MD BLOOD BANK TEST ORDERABLES Fin al Result Performing Organization Address City/[facility]/ZIP Co de Phone Number [facility] [address] [place] [address] * ECG 12 lead (08/13/2025 10:23 AM EST) Ventricular Heart Rate 58 BPM EKG BUR MUSE Atrial Heart Rate [address] Interval 174 ms EKG [facility] QRSD Interval 140 ms EKG [facility] QT Interval 480 ms EKG [facility] QTC Interval 471 ms EKG B[facility] MUSE P Parker 4 degrees EKG BUR MUSE R Parker -45 degrees EKG BUR MUSE T Wave Parker 48 degrees EKG BUR MUSE 08/13/2025 10:2 3 AM EST 08/13/2025 12:55 PM EST Narrative EKG [facility] - 08/13/2025 12:55 PM EST Sinus bradycardia with occasional premature ventricular complexes Left axis deviation Left bundle branch block Abnormal ECG When compared with ECG of 13-Aug-2025 10:22, (Unconfirmed) No significant change was found Confirmed by Pola Schultz ([id number]) on 08/13/2025 12:55:20 PM Procedure Note Pola Schultz Jr., DO - 08/13/2025 Sinus bradycardia with occasional premature ventricular complexes Left axis deviation Left bundle branch block Abnormal ECG When compared with ECG of 13-Aug-2025 10:22, (Unconfirmed) No significant change was found Confirmed by Pola Schultz ([id number]) on 08/13/2025 12:55:20 PM us Domingo Abdullahi MD ECG ORDERABLES Final Result EKG [facility] [address] [place] [address] * (ABNORMAL) Lactic Acid with 3 Hour Reflex (08/13/2025 10:23 AM EST) Lactic Acid 2.4(H) 0.5 - 2.0 mmol/L 08/13/2025 10:34 AM EST [facility] Blood PERIPHERAL BLOOD SPECIMEN / Unknown Venipuncture / Unknown 08/13/2025 10:23 AM EST 08/13/2025 10:25 AM EST us Mery Pena MD LAB BLOOD ORDERABLES Final Result [facility] [address] [facility] [place] [address] * CBC and Differential (08/13/2025 10:23 AM EST) WBC 7.55 4.00 - 11.00 K/uL 08/13/2025 10:29 AM EST [facility] RBC 4.39 4.10 - 5.10 M/uL 08/13/2025 10:29 AM EST [facility] Hemoglobin 13.7 12.0 - 15.3 g/dL 08/13/2025 10:29 AM EST [facility] Hematocrit 40.1 36.0 - 45.0 % 08/13/2025 10:29 AM EST [facility] MCV 91 80 - 96 fL 08/13/2025 10:29 AM EST [facility] RDW 13.2 11.6 - 14.6 % 08/13/2025 10:29 AM EST [facility] Platelet Count 329 150 - 450 K/uL 08/13/2025 10:29 AM EST [facility] Neutrophil 65.7 % 08/13/2025 10:29 AM EST [facility] Lymphocyte 19.6 % 08/13/2025 10:29 AM EST [facility] Monocyte 10.5 % 08/13/2025 10:29 AM EST [facility] Eosinophil 3.4 % 08/13/2025 10:29 AM EST [facility] Basophil 0.5 % 08/13/2025 10:29 AM EST [facility] Immature Granulocyte ([place], Myelo, Promyelocyte) 0.3 % 08/13/2025 10:29 AM EST [facility] Absolute Neutrophil Count 4.96 1.50 - 7.70 K/uL 08/13/2025 10:29 AM EST [facility] Absolute Immature Granulocyte ([place], Myelo, Promyelocyte) 0.02 0.00 - 0.09 K/uL 08/13/2025 10:29 AM EST [facility] Absolute Lymphocyte Count 1.48 1.20 - 3.50 K/uL 08/13/2025 10:29 AM EST [facility] Absolute Monocyte Count 0.79 0.00 - 1.00 K/uL 08/13/2025 10:29 AM EST [facility] Absolute Eosinophil Count 0.26 0.00 - 0.40 K/uL 08/13/2025 10:29 AM [facility] Absolute Basophil Count 0.04 0.00 - 0.20 K/uL 08/13/2025 10:29 AM [facility] Differential Performed Auto Diff Reported 08/13/2025 10:29 AM [facility] Blood PERIPHERAL BLOOD SPECIMEN / Unknown Venipuncture / Unknown 08/13/2025 10:23 AM EST 08/13/2025 10:25 AM EST Narrative [facility] - 08/13/2025 10:29 AM EST Rack:[id number] Pos: 3 us Domingo Abdullahi MD LAB BLOOD ORDERABLES Final Res ult [facility] [place] [address] * Toxicology Screen, Plasma (08/13/2025 10:23 AM EST) Alcohol <10 <10 mg/dL 08/13/2025 1:30 PM [facility] Acetaminophen Result,Blood <3 <=30 ug/mL 08/13/2025 1:30 PM [facility] Salicylate Level, Blood <5 <30 mg/dL 08/13/2025 1:30 PM [facility] Benzodiazepines Screen,Blood Negative Negative 08/13/2025 1:30 PM [facility] Comment: Benzodiazepines cutoff is 50 ng/mL diazepam. Results should be used for medical purposes only and not for any legal or employment evaluative purposes. Tricyclics Screen Negative Negative 025 1:30 PM [facility] Comment: Tyicyclics cutoff is 300 ng/mL Nortriptyline. Results should be used for medical purposes only and not for any legal or employment evaluative purposes. Blood PERIPHERAL BLOOD SPECIMEN / Unknown Venipuncture / Unknown 08/13/2025 10:23 AM EST 08/13/2025 10:25 AM EST us Mery Pena MD LAB BLOOD ORDERABLES Final Result [address] [address] [facility] [place] [address] * Gold Top (08/13/2025 10:23 AM EST) Gold Top Tube Received 08/13/2025 11:50 AM EST [facility] Blood PERIPHERAL BLOOD SPECIMEN / Unknown Venipuncture / Unknown 08/13/2025 10:23 AM EST 08/13/2025 10:26 AM EST us Domingo Abdullahi MD LAB BLOOD ORDERABLES Final Res ult Performing Organization Address City/[facility]/[place] [address] * Mint Green Top (08/13/2025 10:23 AM EST) PST Tube Received 08/13/2025 10:53 AM EST [facility] Blood PERIPHERAL BLOOD SPECIMEN / Unknown Venipuncture / Unknown 08/13/2025 10:23 AM EST 08/13/2025 10:25 AM EST us Domingo Abdullahi MD LAB BLOOD ORDERABLES [place] [address] * Blue Top (08/13/2025 10:23 AM EST) Blue Top Tube Received 08/13/2025 10:38 AM EST [facility] Blood PERIPHERAL BLOOD SPECIMEN / Unknown Venipuncture / Unknown 08/13/2025 10:23 AM EST 08/13/2025 10:25 AM EST us Domingo Abdullahi MD LAB BLOOD ORDERABLES Final Res ult [facility] [place] [address] * PT-INR (08/13/2025 10:23 AM EST) Pathologist [facility] INR 1.1 <1.3 08/13/2025 10:38 AM EST [facility] Blood PERIPHERAL BLOOD SPECIMEN / Unknown Venipuncture / Unknown 08/13/2025 10:23 AM EST 08/13/2025 10:25 AM EST Mery Pena MD LAB BLOOD ORDERABLES Final Result Performing Organization Address City/[facility]/Z[place] [address] * Type and Screen (08/13/2025 10:23 AM EST) Pathologist [facility] ABO and Rh O POS 08/13/2025 1:16 PM EST [facility] Antibody Screen NEG 1:16 PM EST [facility] TS Expiration Date 08/16/2025 23:59 08/13/2025 1:16 PM EST [facility] Blood Venipuncture / Unknown 08/13/2025 10:23 AM EST 08/13/2025 10:25 AM EST Domingo Abdullahi MD BLOOD BANK TEST ORDERABLES Fin al Result [facility] [address] [place] [id number] * (ABNORMAL) Comprehensive Metabolic Panel (08/13/2025 10:23 AM EST) Sodium 137 135 - 146 mmol/L 08/13/2025 11:14 AM EST [facility] Potassium 4.5 3.4 - 5.2 mmol/L 08/13/2025 11:14 AM EST [facility] Comment:Serum sample Chloride 102 98 - 110 mmol/L 08/13/2025 11:14 AM EST [facility] Total CO2/Bicarbonate 22(L) 24 - 32 mmol/L 08/13/2025 11:14 AM EST [facility] Anion Gap 13 2 - 15 mmol/L 08/13/2025 11:14 AM EST [facility] Anion Gap 08/13/2025 11:14 AM EST [facility] BUN 26(H) 7 - 24 mg/dL 08/13/2025 11:14 AM EST [facility] Creatinine, Blood 0.92 0.50 - 1.10 mg/dL 08/13/2025 11:14 AM EST [facility] Glucose, Blood 207(H) 70 - 118 mg/dL 08/13/2025 11:14 AM EST [facility] Calcium 10.1 8.5 - 10.5 mg/dL 08/13/2025 11:14 AM EST [facility] Total Protein 7.9 6.0 - 8.2 g/dL 08/13/2025 11:14 AM EST [facility] Albumin, Blood 4.2 3.4 - 5.2 g/dL 08/13/2025 11:14 AM EST [facility] Globulin Result 3.7 2.0 - 4.0 g/dL 08/13/2025 11:14 AM EST [facility] AST (SGOT) 20 11 - 40 U/L 08/13/2025 11:14 AM EST [facility] ALT (SGPT) 23 4 - 35 U/L 08/13/2025 11:14 AM EST [facility] Alkaline Phosphatase 57 30 - 115 U/L 08/13/2025 11:14 AM EST [facility] Total Bilirubin 0.3 0.0 - 1.2 mg/dL 08/13/2025 11:14 AM EST [facility] Estimated GFR (MDRD) 58(L) >=60 mL/min/BS A 08/13/2025 11:14 AM EST [facility] Comment:This Cr-based equati on underestimates GFR in patients with increased muscle mass. Order CYSTATIN C WITH GFR ESTIMATE, [id number], if additional evaluation of renal function is needed. Blood PERIPHERAL BLOOD SPECIMEN / Unknown Venipuncture / Unknown 08/13/2025 10:23 AM EST 08/13/2025 10:26 AM EST us Domingo Abdullahi MD LAB BLOOD ORDERABLES Final Res ult [facility] [place] [address] * (ABNORMAL) POCT Glucose (08/13/2025 10:16 AM EST) [facility] Signature Glucose, POC 203(H) 70 - 118 mg/dL 08/13/2025 12:58 PM EST [facility] Blood 08/13/2025 10:1 6 AM EST 08/13/2025 12:58 PM EST Narrative [facility] - 08/13/2025 12:58 PM EST Test performed at [facility] Test results routed through Point of Care casino beverage server managed by [facility]. CLIA Director- Mj Garg M.D. us Provider Not In System POCT ORDERABLES - DEVICE Final Result Performing Organization Address City/[facility]/ZIP Co de Phone Number [address] [phone] from Last 3 Months Insurance MEDICARE MEDEX Care Teams Medical Assembly Relationship Specialty Start Date End Date Jorge Vazquez MD [address] [place] [address] PCP - General Internal Medicine 01/10/21 Jorge Vazquez MD [address] [place] [address] 01/10/21 Jorge Vazquez MD [address] [place] [address] 08/20/14
--- NOTE | 2025-08-14 19:24 | PHA.MEDREC ---
Addendum entered by Ananth Martinez, PharmD 08/14/25 21:35: Lisinopril has claims so verified. Quetiapine left off as no frequency or claim. Checked by [facility] Addendum entered by Emily Altman 08/14/25 19:33: Quetiapine 25 mg and Lisinopril 20 mg are on discharge packet, however there are no directions and no claim history for. Will update med rec when/If patient daughter calls back with changes. Original Note: Pharmacy Consult ? Medication Reconciliation Pharmacy has completed the medication reconciliation. Patient was sectioned from [facility] then transported to [place], she had only been there for a few minutes when they stated they were not going to be able to accept her. Patient was then [place] [facility] Called and spoke to patient son Raúl to confirm med list, however did not know what medications patient took. Son instructed me to call his sister Samara [phone]. Called Samara and left message. Utilized claim and discharge packet from [facility] dates 08/14/25.
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
[2025-08-14 22:08] LABS: Glucose, Whole Blood 147 mg/dL (60-115)
[2025-08-14 22:30] VITALS: BMI 19.9
[2025-08-14 22:45] VITALS: BP 156/75; PULSE 91; RESP 18; TEMP 36.1; O2SAT 97
[2025-08-14 22:52] VITALS: BMI 16.6
[2025-08-15 03:00] VITALS: BP 156/87; PULSE 90; RESP 18; TEMP 36.4; O2SAT 97
--- NOTE | 2025-08-15 05:54 | PC.NURSE ---
Pt seen on bed at 2300, alert and oriented, pleasant , calm and appropriately answered all questions, pt denies any SI or thoughts, pt denies any dysuria, seen eating snacks and tolerated, ambulated to the BR, slept fairly, sitter at bedside.
[2025-08-15 06:07] LABS: Hematocrit 40.7 % (37.0-47.0); Hemoglobin 13.7 g/dl (12.0-16.0); Mean Corpuscular HGB Conc 33.7 g/dl (31.0-35.0); Mean Corpuscular Hemoglobin 30.2 pg (27.0-33.0); Mean Corpuscular Volume 89.8 fL (80.0-98.0); NRBC Abs Auto 0.000 X10*3/uL (0.0-0.012); NRBC Pct Auto 0.0 /100WBC (0.0-0.2); Platelet Count 297 X10*3/uL (160-400); Red Blood Count 4.53 X10*6/uL (4.20-5.50); White Blood Count 8.6 X10*3/uL (4.8-10.8)
[2025-08-15 06:16] LABS: Anion Gap 12 (12-20); Blood Urea Nitrogen 22 mg/dL (9-16); Calcium 9.5 mg/dL (8.4-10.2); Carbon Dioxide 24 mmol/L (22-29); Chloride 107 mmol/L (96-108); Creatinine Clr Calc Pharmacy 40.7; Estimated Glomerular Filt Rate > 60; Potassium 4.3 mmol/L (3.3-5.1); Sodium 139 mmol/L (135-145)
[2025-08-15 07:09] LABS: Hemoglobin A1C 182.1151 umol/L; Total Hemoglobin (HGBA1C) 3469.5487 umol/L
[2025-08-15 07:33] LABS: Glucose, Whole Blood 199 mg/dL (60-115)
[2025-08-15 07:52] VITALS: BP 133/75; PULSE 89; RESP 18; TEMP 36.3; O2SAT 97
[2025-08-15] MEDS: Aspirin Enteric Coated 81 MG TABLET.DR PO (08:00)
--- NOTE | 2025-08-15 10:49 | MHC.CM.PN ---
PT FROM [place] AND IS EXPECTED TO RETURN WHEN DCD
[2025-08-15 11:49] LABS: Glucose, Whole Blood 220 mg/dL (60-115)
--- NOTE | 2025-08-15 11:50 | MHC.CM.PN ---
Addendum entered by Cici Macias 08/15/25 14:25: DP: PT HAS BEEN MEDICALLY CLEARED AND CLEARED BY CARE TEAM. DAUGHTER UPDATED AT BEDSIDE. DAUGHTER WILL TAKE PT HOME AND WILL BE STAYING WITH HER. RN/PROVIDER UPDATED. Original Note: THIS CM MET WITH DAUGHTER AIME. PER AIME, PT AND HER CHILDREN WERE GOING TO SEE AN [place] FACILITY WHEN SHE PASSED OUT AND WOKE UP AGITATED, COMBATIVE. DAUGHTER THEN DROVE PT TO ED WHERE A BED SEARCH WAS DONE FOR PSYCH. PER DAUGHTER, PT WAS ACCEPTED AT [facility] BUT WHEN PT ARRIVED (CHILDREN DROVE HER FROM [facility]), SHE WAS TURNED AWAY. PT WAS THEN BROUGHT TO [facility] ED FOR FURTHER EVAL. PT LIVED ALONE PRIOR TO THIS. DAUGHTER IS ATTEMPTING TO GET A COPY OF THE HCP TO BE PUT ON FILE HERE. DAUGHTER IS IN FROM [place] AND WILL BE STAYING WITH MOTHER SO IF CARE TEAM CLEARS (PT IS CURRENTLY MEDICALLY CLEARED), DAUGHTER WILL TAKE HER HOME TO [facility] AND MAY NEED A VNA IF RECOMMENDED. CM WILL CONTINUE TO FOLLOW.
--- NOTE | 2025-08-15 14:26 | PM.DS ---
DS: Providers Provider Date of Service: 08/15/25 Date of admission: 08/14/25 18:01 Date of discharge: 08/15/25 Primary care physician: Unknown Physician Consults: 08/14/25 17:57 Consult to Psychiatry Routine Consulting Provider: [facility] Psych Covering Reason for consultation: encephalopathy, sec 12 from [facility] to [place] 08/15/25 11:31 Inpt CARE Team Crisis Consult Routine Comment: Reason for consultation: medicaly cleared, needs clearance , reported SI POA DS: Diagnosis Discharge Diagnosis (1) UTI (urinary tract infection): Status: Acute DS: Summary Hospital Course Hospital Course: Per HPI: 80-year-old woman presented to the ER from [place] [facility] with increased confusion. Patient lives near the [place] area and had presented with her son to the [facility] after having a syncopal episode while in the car with her son. Apparently they were driving around checking out assisted living facilities and the son said that she passed out. He brought her to [facility] and there she became combative, stated that she wanted to . Initially no infectious source was found and patient was placed on section 12. She was then accepted at [facility] and transferred there today. Upon arrival to [facility] due to her combativeness and aggressiveness she was brought to [facility] for medical management. UA appears to be positive, she has a mildly elevated white blood cell count of 12.2. Head CT was done which was negative for any acute abnormality. Chest x-ray appears to be negative for consolidation or effusion. No fever noted. She was given a dose of Rocephin, Zyprexa and 1 L of IV fluids. She will be admitted for further management and treatment of acute encephalopathy secondary to urinary tract infection. Hospital course : 80-year-old woman transferred from [facility] in [place], to [facility] due to aggression and confusion likely in the setting of metabolic toxic encephalopathy secondary to asymptomatic bacteriuria versus baseline medical cognitive decline. Acute encephalopathy secondary to asymptomatic bacteriuria resolved with ceftriaxone , being prescribed Augmentin 5 day course Patient is UA was positive for infectious etiology however patient denied any symptoms of urinary burning. Risks versus benefits we usually do not treat asymptomatic bacteriuria however given her age and frailty we would like to treat her with antibiotics given rapid/brisk improvement. Patient did not have a venous lactate, was had mild leukocytosis however did not have any other obvious source. Was not hypoglycemic, no electrolyte abnormalities, afebrile, normotensive during this hospitalization further suggesting that this could likely be in the setting of asymptomatic bacteriuria Aggressiveness, combativeness, cognitive behavioral/SI Patient placed on section 12 and transferred to [place] from [place], during the hospitalization, patient and her son were seeking psychiatric long-term placement which is likely or triggered her agitation as patient reports she has been trying to put it off for more than a year. However she was placed on 1-1 sitter, cleared by care team prior to discharge. Diabetes mellitus type 2 -holding metformin, resume after completion of antibiotics from Wednesday Hypertension continue home meds as the patient was normotensive throughout the hospitalization Stable blood pressure Continue home medications DVT prophylaxis with Lovenox Patient was deemed hemodynamically stable, antibiotics prescribed, denied any SI, cleared by care team. Daughter is here to take her home until they find a long-term psychiatric care facility. Time spent discussing smoking cessation with patient: more than 10 minutes Time Attestation Discharge Coordination Time (in mins): 45 Quality: Safe Use of Opioids Does Pt have an Active Cancer Diagnosis on the Problem List?: No Quality: Stroke Does the patient have a stroke diagnosis?: No Physical Exam Vital Signs: Vital Signs: Last Vital Signs Temp 97.3 F 08/15/25 07:52 Pulse 89 08/15/25 07:52 Resp 18 08/15/25 07:52 BP 133/75 08/15/25 07:52 Pulse Ox 97 08/15/25 07:52 O2 Del Method Room Air 08/15/25 07:52 BMI result Body Mass Index 16.6 DS: Data Data Completed and Pending Labs on day of discharge: Laboratory Results - last 24 hr 08/14/25 08/14/25 08/14/25 15:26 15:27 15:34 WBC 12.2 H RBC 4.70 Hgb 14.2 Hct 42.4 MCV 90.2 MCH 30.2 MCHC 33.5 RDW 13.2 Plt Count 301 MPV 9.8 Immature Gran % (Auto) 0.4 Neut % (Auto) 88.0 H Lymph % (Auto) 5.3 L [place] % (Auto) 5.8 Eos % (Auto) 0.2 Baso % (Auto) 0.3 Lymph # (Auto) 0.7 L [place] # (Auto) 0.7 Eos # (Auto) 0.0 Baso # (Auto) 0.0 Abs Immat Gran (auto) 0.05 H Absolute Neuts (auto) 10.7 H Absolute Nucleated RBC 0.000 Nucleated RBC % (auto) 0.0 VBG pH 7.39 VBG pCO2 36 VBG pO2 48 VBG HCO3 22 VBG O2 Saturation 66.0 VBG Base Excess -2.0 Sodium 139 Potassium 3.7 Chloride 103 Carbon Dioxide 23 Anion Gap 17 BUN 22 H Creatinine 0.85 Estim Creat Clear Calc 45.9 Estimated GFR > 60 POC Glucose Random Glucose 193 H Estimat Average Glucose Hemoglobin A1c % Lactic Acid 1.7 Calcium 9.7 Total Bilirubin 0.5 AST 27 ALT 26 Alkaline Phosphatase 56 Ammonia 25 Total Creatine Kinase 60 Total Protein 8.1 H Albumin 4.9 TSH 0.68 Urine Color Urine Appearance Urine pH Ur Specific [place] Urine Protein Urine Glucose (UA) Urine Ketones Urine Blood Urine Nitrite Ur Leukocyte Esterase Urine RBC Urine WBC Ur Squamous Epith Cells Urine Bacteria Hyaline Casts 08/14/25 08/14/25 08/15/25 15:49 22:04 05:41 WBC 8.6 RBC 4.53 Hgb 13.7 Hct 40.7 MCV 89.8 MCH 30.2 MCHC 33.7 RDW 13.3 Plt Count 297 MPV 9.6 Immature Gran % (Auto) Neut % (Auto) Lymph % (Auto) [place] % (Auto) Eos % (Auto) Baso % (Auto) Lymph # (Auto) [place] # (Auto) Eos # (Auto) Baso # (Auto) Abs Immat Gran (auto) Absolute Neuts (auto) Absolute Nucleated RBC 0.000 Nucleated RBC % (auto) 0.0 VBG pH VBG pCO2 VBG pO2 VBG HCO3 VBG O2 Saturation VBG Base Excess Sodium 139 Potassium 4.3 Chloride 107 Carbon Dioxide 24 Anion Gap 12 BUN 22 H Creatinine 0.76 Estim Creat Clear Calc 40.7 Estimated GFR > 60 POC Glucose 147 H Random Glucose 179 H Estimat Average Glucose 154 Hemoglobin A1c % 7.0 H Lactic Acid Calcium 9.5 Total Bilirubin AST ALT Alkaline Phosphatase Ammonia Total Creatine Kinase Total Protein Albumin TSH Urine Color Yellow Urine Appearance Cloudy Urine pH 5.5 Ur Specific [place] >= 1.030 H Urine Protein 300 (3+) H Urine Glucose (UA) Negative Urine Ketones 80 Urine Blood Moderate (2+) H Urine Nitrite Positive H Ur Leukocyte Esterase Moderate (2+) H Urine RBC 11-20 H Urine WBC >50 H Ur Squamous Epith Cells 3-5 Urine Bacteria 4+ Hyaline Casts 0-2 08/15/25 08/15/25 07:24 11:43 WBC RBC Hgb Hct MCV MCH MCHC RDW Plt Count MPV Immature Gran % (Auto) Neut % (Auto) Lymph % (Auto) [place] % (Auto) Eos % (Auto) Baso % (Auto) Lymph # (Auto) [place] # (Auto) Eos # (Auto) Baso # (Auto) Abs Immat Gran (auto) Absolute Neuts (auto) Absolute Nucleated RBC Nucleated RBC % (auto) VBG pH VBG pCO2 VBG pO2 VBG HCO3 VBG O2 Saturation VBG Base Excess Sodium Potassium Chloride Carbon Dioxide Anion Gap BUN Creatinine Estim Creat Clear Calc Estimated GFR POC Glucose 199 H 220 H Random Glucose Estimat Average Glucose Hemoglobin A1c % Lactic Acid Calcium Total Bilirubin AST ALT Alkaline Phosphatase Ammonia Total Creatine Kinase Total Protein Albumin TSH Urine Color Urine Appearance Urine pH Ur Specific [place] Urine Protein Urine Glucose (UA) Urine Ketones Urine Blood Urine Nitrite Ur Leukocyte Esterase Urine RBC Urine WBC Ur Squamous Epith Cells Urine Bacteria Hyaline Casts Discharge Plan Discharge Anticipated Discharge Date/Time: 08/15/25 14:17 Patient Disposition: Home, Self-Care Discharge Diagnosis: AMS / agitation and SI likely in the setting of baseline psychiatric issues, versus asymptomatic bacteriuria Referrals: Physician,Unknown J [Primary Care Provider, Medical] - 1 Week Discharge Medications: New amoxicillin-pot clavulanate 875-125 mg tablet 1 tab PO Q12H 7 Days Qty: 14 0RF Continued cyanocobalamin (vitamin B-12) [Vitamin B-12] 1,000 mcg Tablet Extended Release 1,000 mcg PO DAILY lisinopril 20 mg tablet 20 mg PO DAILY simvastatin 10 mg tablet 10 mg PO BEDTIME aspirin 81 mg Tablet,Delayed Release (Dr/Ec) 81 mg PO DAILY famotidine 20 mg Tablet 20 mg PO DAILY sertraline 25 mg tablet 25 mg PO DAILY solifenacin 10 mg tablet 10 mg PO DAILY cholecalciferol (vitamin D3) [Vitamin D3] 25 mcg (1,000 unit) Tablet 25 mcg PO DAILY Held metformin 500 mg tablet 1,000 mg PO BID Hold Instructions: Resume on 08/20/25. Discharge Orders: Discharge Order (Routine); Ordered 08/15/25 Ordered By: Shanda Acosta Diet: Diabetic diet Activity on Discharge: As tolerated Stand Alone Forms: Patient Portal Discharge page Print Language: Croatian Care Plan Goals: Complete antibiotic course Long-term placement Follow up with PCP Please feel free to seek further medical care if needed Health Concerns: See above Plan of Treatment: See above Assessment: See above Patient Instructions: Encephalopathy (DC)
== END 2025-08-15 14:39 | disposition home or self-care (01) | DRG 695 ==
LOC: HO.ED 17:46 → HO.EDOVER 18:34 → HO.S3 21:00
PROVIDERS: Admitting Provider Nurse Practitioner Acute Care; Emergency Provider Student in an Organized Health Care Education/Training Program; Visit Provider Student in an Organized Health Care Education/Training Program
DX: R82.71 Bacteriuria (principal); G93.41 Metabolic encephalopathy; R45.851 Suicidal ideations; E11.9 Type 2 diabetes mellitus without complications; I10 Essential (primary) hypertension; Z79.82 Long term (current) use of aspirin; Z79.84 Long term (current) use of oral hypoglycemic drugs; Z79.899 Other long term (current) drug therapy
CPT/HCPCS: 36415; 70450; 71045; 80048; 80053; 81001; 82140; 82550; 82803; 82947; 83036; 83605; 84443; 85025; 85027; 87040; 93005; 99285; J0696; J2250; J2359; S9485

== ENCOUNTER → 2025-08-14 14:07 | Outpatient (BNV) | payer MEDICARE, SELFPAY | PROVIDERS: Admitting Provider Nurse Practitioner Acute Care; Emergency Provider Student in an Organized Health Care Education/Training Program; Visit Provider Internal Medicine Cardiovascular Disease | DX: I44.7 Left bundle-branch block, unspecified (principal) | CPT/HCPCS: 93010 ==

== ENCOUNTER → 2025-08-14 14:12 | Outpatient (BNV) | payer MEDICARE, SELFPAY | PROVIDERS: Emergency Provider Student in an Organized Health Care Education/Training Program; Visit Provider Radiology Diagnostic Radiology | DX: R06.02 Shortness of breath (principal) | CPT/HCPCS: 70450; 71045 ==

== ENCOUNTER → 2025-08-14 18:01 | Outpatient (BNV) | payer MEDICARE, SELFPAY | PROVIDERS: Admitting Provider Nurse Practitioner Acute Care; Emergency Provider Student in an Organized Health Care Education/Training Program; Visit Provider Nurse Practitioner Acute Care | DX: N39.0 Urinary tract infection, site not specified (principal) | CPT/HCPCS: 99223; 99239 ==